=== PATIENT | female | born 1945 | race Caucasian/White ===

== ENCOUNTER 2021-10-12 16:07 | Inpatient (IN) | payer MEDICARE, SELFPAY ==
[2021-10-12 16:15] VITALS: BP 140/66; PULSE 91; RESP 20; TEMP 36.6; O2SAT 93; BMI 30.2
--- NOTE | 2021-10-12 16:15 | PC.NURSE ---
patient arrived to floor via ambulance
[2021-10-12 16:23] VITALS: PULSE 90
--- NOTE | 2021-10-12 17:10 | ECG_ITS ---
APPROVED REPORT Exam: Resting ECG HR:85 bpm ECG Measurements Heart Rate 85 AXES GA 202 P 66 QRSd 145 QRS -59 QT 399 T -19 QTc 441 Conclusion SINUS RHYTHM RIGHT BUNDLE BRANCH BLOCK [120+ ms QRS DURATION, UPRIGHT V1, 40+ ms S IN I/aVL/V4/V5/V6] LEFT ANTERIOR FASCICULAR BLOCK [QRS AXIS <= -45, QR IN I, RS IN II] POSSIBLE ANTEROSEPTAL MYOCARDIAL INFARCTION , OF INDETERMINATE AGE [30 ms Q WAVE IN V1-V4] ABNORMAL ECG UNCONFIRMED REPORT Electronically signed by : Earl Weber MD 10/15/2021 08:11:12
--- NOTE | 2021-10-12 18:40 | PC.NURSE ---
Patient admitted as direct admit from [facility]. Patient stated she didnt know what medications she took and list was in daughters car. Daughter stated she was not going to go to car to get list. Dr. Gilliland paged and made aware of pt arrival; troponin set, ekg, dilaudid, cardiac diet, ordered. VS stable, patient on room air. Patient complains of intermittent chest pain that does not radiate, is 10/10 on 0-10 pain scale. 1 inch nitro paste ordered. Patient stated pain is the same as it was in [facility] and was not worse.
[2021-10-12 19:35] LABS: Troponin I 2.75 ng/ml (0.00-0.034)
[2021-10-12 20:00] VITALS: BP 114/87; PULSE 100; PULSE 83; RESP 17; TEMP 36.7; O2SAT 91
[2021-10-12 22:58] LABS: Coronavirus 19, PCR Not Detected (NotDetected); Influenza A, PCR Not Detected (NotDetected); Influenza B, PCR Not Detected (NotDetected)
[2021-10-13] VITALS (22 sets, daily range): BP systolic 85–140; BP diastolic 48–81; PULSE 77–120; RESP 16–20; TEMP 36.2–37.4; O2SAT 91–98
--- NOTE | 2021-10-13 | IR_ITS ---
APPROVED REPORT Patient Location: Inpatient Legislative Correspondent: CANDI Temple RT (R) PROCEDURES Left heart catheterization Left ventriculogram Selective coronary angiogram Drug-eluting stent deployment to the ostial proximal dominant right coronary artery INDICATION Acute non-ST elevation myocardial infarction, Coronary artery dissection/disease Informed consent was obtained prior to the procedure. COMPLICATIONS NONE Estimated Blood Loss: LESS THAN 10 ML TECHNIQUE One percent lidocaine used to anesthetize the right anterior aspect of the wrist. The right radial artery was accessed via the Seldinger technique. A 6 [place] sheath was placed in the right radial artery. 2.5 mg of verapamil, 800 mcg of nitroglycerin, 1mg Lidocaine and 5000 U Heparin were given through the arterial sheath. The papa catheter was also used to perform right coronary artery selective angiogram. During the angiogram it was noticed the dissection was present in the proximal segment. It is possible it was catheter induced however the catheter was coaxial and appeared nicely aligned with the right coronary artery. It is also possible there was a pre-existing dissection which was the etiology for the elevated troponin level. Because there appeared to be a propagation of the dissection therapeutic heparin was immediately administered and a Choice PT extra-support wire was gently passed through the true lumen. A 3.5 x 26 mm resolute Jean-Claude stent was placed in the ostial proximal segment of the right coronary artery deployed at 24 whitney reducing the critical life-threatening dissection to 0%. PRETTY-3 flow was present before and after the procedure with transient PRETTY II flow in the presence of the dissection. Following this the apparatus was removed from the right coronary artery and the same catheter was used to perform selective coronary angiography of the left coronary system as well as left ventriculogram and left heart catheterization at the end the procedure the apparatus was removed the sheath was removed and hemostasis achieved using TR banding patient was transferred to the postop putting in stable addition ANGIOGRAPHIC RESULTS The left main artery Normal The left anterior descending artery Is proximally normal and has hazy 10 to 20% stenoses along the highly tortuous midportion of the vessel The circumflex artery Nondominant normal The right coronary artery Large dominant with a proximal dissection The FRANCIS ventriculogram reveals Severe left ventricular dilatation with ejection fraction of 20 to 25% anterior apical wall hypokinesis The left ventricular end-diastolic pressure 35 to 40 mmHg IMPRESSION 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 Entresto and beta-sheri 2. Dual antiplatelet therapy 3. LDL less than 55 to be achieved with high intensity statin 4. Cardiac rehabilitation 5. Patient should be discharged home with a LifeVest Electronically signed by : Kamran Wilkerson MD 10/13/2021 14:08:23
--- NOTE | 2021-10-13 05:49 | PC.NURSE ---
AOx4 to questions but pt does become confused at times with place/situation. Pt has been encouraged to use call light and explained importance of asking for help to get up but continues to try to get up on her own. Pt unsteady when ambulating independently and requires 1x assist to BR. Pt has been awake t/o majority of night and up to the chair. Pt has not voiced any complaints to staff. Bed alarm and chair alarm in place for pt safety. Call light within reach.
--- NOTE | 2021-10-13 08:56 | ECG_ITS ---
APPROVED REPORT Exam: Resting ECG HR:109 bpm ECG Measurements Heart Rate 109 AXES QRSd 137 QRS -63 QT 363 T 83 QTc 427 Conclusion ATRIAL FLUTTER/TACHYCARDIA WITH RAPID VENTRICULAR RESPONSE RIGHT BUNDLE BRANCH BLOCK [120+ ms QRS DURATION, UPRIGHT V1, 40+ ms S IN I/aVL/V4/V5/V6] LEFT ANTERIOR FASCICULAR BLOCK [QRS AXIS <= -45, QR IN I, RS IN II] POSSIBLE SEPTAL MYOCARDIAL INFARCTION , OF INDETERMINATE AGE [30 ms Q WAVE IN V1/V2] MODERATE T-WAVE ABNORMALITY, CONSIDER LATERAL ISCHEMIA [-0.1+ mV T-WAVE IN I/aVL/V5/V6] ABNORMAL ECG UNCONFIRMED REPORT Electronically signed by : Earl Weber MD 10/15/2021 08:08:58
--- NOTE | 2021-10-13 09:08 | PC.NURSE ---
Dr. Oswald notified of abnormal ekg of a-fib with rvr during rounds.
--- NOTE | 2021-10-13 09:14 | XR_ITS ---
FINAL REPORT CLINICAL HISTORY: chest pain FINDINGS: A single PA view of the chest was obtained. There is no prior exam for comparison. The cardiac and mediastinal silhouettes are within normal limits. There are increased interstitial markings with left base airspace disease and small left pleural effusion. There is no pneumothorax. No acute osseous abnormality is identified. IMPRESSION: Interstitial opacities and left base airspace disease and pleural effusion favored to represent pulmonary edema or pneumonia. Reviewed, Interpreted and Dictated by Deya Murray MD Transcribed by Maricarmen Pedro Authenticated and [facility]
--- NOTE | 2021-10-13 09:19 | P.CONPHA_ITS ---
[facility] Pharmacy VTE Monitoring Patient Demographics Patient Allergies No Known Allergies Allergy (Verified 10/12/21 17:02) Height: 1.78 m Weight: 95.51 kg VTE Risk Was VTE Risk Assessment Performed: No VTE Score: 4 VTE Risk Level: Low Risk Clinical Trial Participant: No Prophylaxis VTE Prophylaxis Ordered?: Yes Types of VTE Prophylaxis: TEDS Knee High
[2021-10-13 09:42] LABS: Basophils % 0.2 % (0.1-2.0); Eosinophils # 0.1 K/mm3 (0.0-0.4); Eosinophils % 0.7 % (0.1-12.0); Hematocrit 39.7 % (37.0-47.0); Hemoglobin 12.2 g/dL (12.2-16.2); Lymphocytes # 0.5 K/mm3 (0.7-4.5); Lymphocytes % 2.8 % (10-50); Mean Corpuscular HGB Conc 30.9 g/dL (31.8-35.4); Mean Corpuscular Hemoglobin 30.4 pg (27.0-31.2); Mean Corpuscular Volume 98.5 fl (81-99); Monocytes # 0.3 K/mm3 (0.1-1.0); Monocytes % 1.9 % (1.7-9.3); Neutrophils % 94.3 % (37.0-80.0); Platelet Count 413 K/mm3 (142-424); Red Blood Count 4.02 M/mm3 (4.20-5.40); Red Cell Distribution Width 13.6 % (11.5-17.5); White Blood Count 16.9 K/mm3 (4.8-10.8)
[2021-10-13 09:49] LABS: MANUAL DIFFERENTIAL MANUAL DIFFERENTIAL (MANUAL DIFF)
[2021-10-13 10:21] LABS: Lymphocytes % 6 % (10-50); Monocytes % 3 % (2-9); Neutrophils % 91 % (42-76); Platelet Estimate Normal; RBC Morphology Normal; Total Cells Counted 100
--- NOTE | 2021-10-13 10:23 | PC.NURSE ---
Rounded on pt, cleaned and straightened room. Pt is up to chair and npo for possible procedure. No needs voiced at this time.
[2021-10-13 10:30] LABS: Anion Gap 12.5 mEq/L (5-15); Blood Urea Nitrogen 29 mg/dl (7-17); Calcium 9.3 mg/dl (8.4-10.2); Carbon Dioxide 24 mmol/L (22.0-30.0); Chloride 105 mmol/L (98-107); Creatinine Clearance Estimated 56 mL/min (50-200); Estimated Glomerular Filt Rate 40 ml/min (>60); GFR (African American) 48 ML/MIN (>60); Glucose 130 mg/dl (74-100); Potassium 5.5 mmoL/L (3.5-5.1); Sodium 136 mmol/L (136-145)
[2021-10-13 10:31] LABS: Alanine Aminotransferase 80 U/L (12-78); Albumin Level 3.6 g/dl (3.5-5.0); Alkaline Phosphatase 358 U/L (38-126); Aspartate Amino Transferase 67 U/L (14-36); Bilirubin,Direct 0.6 mg/dl (0.0-0.4); Bilirubin,Total 0.6 mg/dl (0.2-1.3); Chol/HDL Ratio 4.7 (1-3.5); Cholesterol 211 mg/dl (140-200); HDL Cholesterol 45 mg/dl (40-60); Total Protein,Serum 6.4 g/dl (6.3-8.2); Triglycerides 244 mg/dl (30-150); VLDL Cholesterol 49 mg/dL (0-40)
--- NOTE | 2021-10-13 10:40 | EXP.CARD.CON ---
History of Present Illness History of Present Illness Consult date: 10/13/21 Requesting physician: Tunde Sykes Consult reason: chest pain Chief complaint: chest pain History of present illness: This is a 75-year-old white female who presented to [facility] with complaints of chest pain. The patient is a very poor historian so it is really hard to get an accurate review of systems and HPI on this patient. But she reports that she had chest pain the night before her admission and then her daughter states that she called her the morning of admission may be around 10 AM complaining of chest pain. The patient states that she was having sharp chest pains that lasted 2 minutes and were associated with shortness of breath. However her daughter states that she had the chest pain through the night and into the next morning as well and it sounded like it lasted for several hours. It is unclear how long she really had the chest pain. The patient reports that she took Tylenol and the pain subsided within an hour. She does not have any chest pain this morning but she is complaining of low back pain which she states is chronic. She does appear a little uncomfortable this morning but she states her only symptom is the low back pain. Her daughter took her to [facility] where she was found to have a non-STEMI and then she was transferred [facility]. Her troponin is elevated at 2.75 consistent with a non-ST elevation myocardial infarction. She does have a history of hypertension and hyperlipidemia. She is a former smoker. It is questionable whether or not she has a family history of ischemic heart disease. At 1 point the patient told us that she had no family history of heart disease and then she said she did. The daughter is unsure of any family history. Review of Systems Review of Systems Review of systems:: pertinent systems reviewed and negative unless documented below Constitutional Constitutional: Reports system reviewed and no additional complaints, except as documented Eyes Eyes: Reports system reviewed and no additional complaints, except as documented ENT Ears, Nose, Mouth, and Throat: Reports system reviewed and no additional complaints, except as documented *Cardiovascular Cardiovascular: Reports chest pain, Reports chest pain at rest, Reports chest pain with activity, Reports dyspnea and Reports dyspnea on exertion *Respiratory Respiratory: Reports system reviewed and no additional complaints, except as documented, Reports dyspnea and Reports dyspnea on exertion *Gastrointestinal Gastrointestinal: Reports system reviewed and no additional complaints, except as documented *Musculoskeletal Musculoskeletal: Reports system reviewed and no additional complaints, except as documented Integumentary/Breasts Skin/Breast: Reports system reviewed and no additional complaints, except as documented *Neurologic Neurologic: Reports system reviewed and no additional complaints, except as documented Psychiatric Psychiatric: Reports system reviewed and no additional complaints, except as documented Endocrine Endocrine: Reports system reviewed and no additional complaints, except as documented Hematologic/Lymphatic Hematologic/Lymphatic: Reports system reviewed and no additional complaints, except as documented Allergic/Immunologic Allergic/Immunologic: Reports system reviewed and no additional complaints, except as documented Exam Data for Last 24 hours Vital signs and Labs for Last 24 Hours: Temp Pulse Resp BP Pulse Ox 97.6 F 113 H 18 122/69 93 L 10/13/21 08:00 10/13/21 08:00 10/13/21 08:00 10/13/21 08:00 10/13/21 08:00 Laboratory Results - last 24 hr 10/12/21 17:30: Troponin I 2.75 H 10/12/21 22:15: SARS-CoV-2 (PCR) Not detected, Influenza A Untype (PCR) Not detected, Influenza Type B (PCR) Not detected 10/13/21 09:30: WBC 16.9 H, RBC 4.02 L, Hgb 12.2, Hct 39.7, MCV 98.5, MCH 30.4, MCHC 30.9 L,
[2021-10-13 10:59] LABS: Magnesium 1.6 mg/dl (1.6-2.3)
[2021-10-13 11:01] LABS: Thyroid Stimulating Hormone 1.49 uIU/mL (0.465-4.68)
--- NOTE | 2021-10-13 13:15 | SUR.PHASEII ---
Pt loaded with 180mg of Brilinta yesterday at [facility] stated to only give 90mg now and 90 tonight and to continue BID
--- NOTE | 2021-10-13 13:36 | EXP.HP ---
History of Present Illness *Admission Date: 10/12/21 *History of present illness: This is a 75-year-old white female who presented to [facility] with complaints of chest pain.? The patient is a very poor historian so it is really hard to get an accurate review of systems and HPI on this patient.? But she reports that she had chest pain the night before her admission and then her daughter states that she called her the morning of admission may be around 10 AM complaining of chest pain.? The patient states that she was having sharp chest pains that lasted 2 minutes and were associated with shortness of breath.? However her daughter states that she had the chest pain through the night and into the next morning as well and it sounded like it lasted for several hours.? It is unclear how long she really had the chest pain.? The patient reports that she took Tylenol and the pain subsided within an hour.? She does not have any chest pain this morning but she is complaining of low back pain which she states is chronic.? She does appear a little uncomfortable this morning but she states her only symptom is the low back pain.? Her daughter took her to [facility] where she was found to have a non-STEMI and then she was transferred here to [facility].? Her troponin is elevated at 2.75 consistent with a non-ST elevation myocardial infarction.? She does have a history of hypertension and hyperlipidemia.? She is a former smoker.? It is questionable whether or not she has a family history of ischemic heart disease.? At 1 point the patient told us that she had no family history of heart disease and then she said she did.? The daughter is unsure of any family history. PFSH PFS Social History Smoking Status: Smoker, status unknown alcohol intake: former current occupational status: retired Review of Systems Review of Systems Review of systems:: unable to obtain *Neurologic Neurologic: Reports system reviewed and no additional complaints, except as documented Meds Home Medications and Allergies Home Medications Medication Instructions Recorded Confirmed Type famotidine 40 mg tablet 40 mg PO BID Indigestion 10/12/21 10/13/21 History levothyroxine 50 mcg tablet 50 mcg PO DAILY hypothyroidism 10/12/21 10/13/21 History oxycodone-acetaminophen 5 mg-325 5 - 325 tab PO DAILY PRN Pain, 10/12/21 10/12/21 History mg tablet Moderate pantoprazole 40 mg tablet,delayed 40 mg PO DAILY acid reflux 10/12/21 10/12/21 History release pravastatin 40 mg tablet 40 mg PO HS Cholesterol 10/12/21 10/13/21 History ferrous sulfate 325 mg (65 mg 325 mg PO QPMWITHMEAL iron 10/13/21 10/13/21 History iron) tablet supplement furosemide 40 mg tablet 40 mg PO DAILY diuretic 10/13/21 10/13/21 History gabapentin 300 mg capsule 300 - 600 mg PO HS nerve pain 10/13/21 10/13/21 History lisinopril 20 1 tab PO DAILY Hypertension 10/13/21 10/13/21 History mg-hydrochlorothiazide 12.5 mg tablet potassium chloride 20 mEq 20 meq PO DAILY potassium 10/13/21 10/13/21 History tablet,extended release(part/cryst) replacement New Prescriptions to Start Prescriptions: Allergies Allergy/AdvReac Type Severity Reaction Status Date / Time No Known Allergies Allergy Verified 10/12/21 17:02 Exam Data for Last 24 hours Vital signs and Labs for Last 24 Hours: Temp Pulse Resp BP Pulse Ox 99.3 F 95 H 17 127/77 95 10/13/21 11:23 10/13/21 13:25 10/13/21 13:25 10/13/21 13:25 10/13/21 13:25 Laboratory Results - last 24 hr 10/12/21 17:30: Troponin I 2.75 H 10/12/21 22:15: SARS-CoV-2 (PCR) Not detected, Influenza A Untype (PCR) Not detected, Influenza Type B (PCR) Not detected 10/13/21 09:30: WBC 16.9 H, RBC 4.02 L, Hgb 12.2, Hct 39.7, MCV 98.5, MCH 30.4, MCHC 30.9 L, RDW 13.6, Plt Count 413, MPV 8.0, Neut % (Auto) 94.3 H, Lymph % (Auto) 2.8 L, [place] % (Auto) 1.9, Eos % (Auto) 0.7, Baso % (Auto) 0.2, Neut # (Auto) 16.0 H, Lym
[2021-10-13 13:40] LABS: CATHL Activated Clotting Time 240 SEC (74-125)
--- NOTE | 2021-10-13 18:46 | PC.NURSE ---
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 VS stable and TR band in place, pulses in right wrist strong and palpable. Initially tried to take air out at 1505 but patient began to bleed from site. 4ml placed back in band. VS still stable. Patient able to wake up and take po medication. Dilaudid given for pain. Patient stated she was not having chest pain anymore.
[2021-10-13 21:45] LABS: POC Glucose,Bedside 145 (70-110)
[2021-10-14] VITALS (7 sets, daily range): BP systolic 91–121; BP diastolic 50–70; PULSE 76–93; RESP 18–28; TEMP 36.4–37; O2SAT 94–98; BMI 30.3
--- NOTE | 2021-10-14 05:40 | PC.NURSE ---
Patient a&o x3. TR band off Right radial cath site CDI, no bleeding nor hematoma noted. Reminded patient not to put pressure on arm. Patient ambulated to toilet with stand by assist. No chest pain noted throughout night. Patient medicated per mar for back pain.
[2021-10-14 06:33] LABS: Basophils % 0.2 % (0.1-2.0); Eosinophils # 0.1 K/mm3 (0.0-0.4); Eosinophils % 0.8 % (0.1-12.0); Hematocrit 35.9 % (37.0-47.0); Hemoglobin 11.2 g/dL (12.2-16.2); Lymphocytes # 0.7 K/mm3 (0.7-4.5); Lymphocytes % 4.6 % (10-50); Mean Corpuscular HGB Conc 31.3 g/dL (31.8-35.4); Mean Corpuscular Hemoglobin 30.4 pg (27.0-31.2); Mean Corpuscular Volume 97.4 fl (81-99); Mean Platelet Volume 7.8 fl (7.4-10.4); Monocytes # 0.6 K/mm3 (0.1-1.0); Monocytes % 3.6 % (1.7-9.3); Neutrophils # 14.4 K/mm3 (1.8-7.8); Neutrophils % 90.8 % (37.0-80.0); Platelet Count 491 K/mm3 (142-424); Red Blood Count 3.69 M/mm3 (4.20-5.40); Red Cell Distribution Width 13.9 % (11.5-17.5); White Blood Count 15.9 K/mm3 (4.8-10.8)
[2021-10-14 06:54] LABS: MANUAL DIFFERENTIAL MANUAL DIFFERENTIAL (MANUAL DIFF)
[2021-10-14 07:23] LABS: Anion Gap 14.6 mEq/L (5-15); Blood Urea Nitrogen 34 mg/dl (7-17); Carbon Dioxide 24 mmol/L (22.0-30.0); Chloride 104 mmol/L (98-107); Creatinine Clearance Estimated 33 mL/min (50-200); Estimated Glomerular Filt Rate 22 ml/min (>60); GFR (African American) 26 ML/MIN (>60); Glucose 125 mg/dl (74-100); Potassium 4.6 mmoL/L (3.5-5.1); Sodium 138 mmol/L (136-145)
[2021-10-14 07:57] LABS: Lymphocytes % 3 % (10-50); Monocytes % 7 % (2-9); Neutrophils % 90 % (42-76); Total Cells Counted 100
[2021-10-14 07:58] LABS: Platelet Estimate Slight Increase; RBC Morphology Normal
--- NOTE | 2021-10-14 09:46 | EXP.CARD.PN ---
Subjective Subjective Date: 10/14/21 Time: 08:30 Principal diagnosis: nonstemi, cardiomyopathy Interval history: This is a 75-year-old white female who presented to [facility] with chest pain. The patient was found to have a non-STEMI and transferred here to [facility]. The patient underwent left cardiac catheterization and had a dissection to her right coronary artery and underwent stenting to the right coronary artery. 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 The patient has severe LV dysfunction with an estimated ejection fraction on left ventriculogram at 20 to 25% with anterior apical wall hypokinesis she also had a severely elevated LVEDP. The patient was started on Lasix, Entresto, metoprolol and Jardiance yesterday. Her renal function has significantly elevated today from 1.3-2.2. She is likely having some contrast nephropathy from the contrast load that was given during her heart cath yesterday as well as the addition of Lasix and Entresto yesterday. This morning she denies any chest pain or pressure. She denies any shortness of breath or edema. She denies any fever, chills, nausea, vomiting, diarrhea, PND or orthopnea. Patient is still having lower back pain which she states is chronic. Exam Data for Last 24 hours Vital signs and Labs for Last 24 Hours: Temp Pulse Resp BP Pulse Ox 98.2 F 78 24 91/50 L 97 10/14/21 08:00 10/14/21 08:00 10/14/21 08:00 10/14/21 08:00 10/14/21 08:00 Laboratory Results - last 24 hr 10/13/21 09:30: WBC 16.9 H, RBC 4.02 L, Hgb 12.2, Hct 39.7, MCV 98.5, MCH 30.4, MCHC 30.9 L, RDW 13.6, Plt Count 413, MPV 8.0, Neut % (Auto) 94.3 H, Lymph % (Auto) 2.8 L, [place] % (Auto) 1.9, Eos % (Auto) 0.7, Baso % (Auto) 0.2, Neut # (Auto) 16.0 H, Lymph # (Auto) 0.5 L, [place] # (Auto) 0.3, Eos # (Auto) 0.1, Baso # (Auto) 0.0, Total Counted 100, Neutrophils % (Manual) 91 H, Lymphocytes % (Manual) 6 L, Monocytes % (Manual) 3, Platelet Estimate Normal, RBC Morphology Normal 10/13/21 09:30: Sodium 136, Potassium 5.5 H, Chloride 105, Carbon Dioxide 24, Anion Gap 12.5, BUN 29 H, Creatinine 1.30 H, Estimated Creat Clear 56, Estimated GFR 40 L, Est GFR ( Amer) 48 L, Glucose 130 H, Calcium 9.3, TSH 1.49 10/13/21 09:30: Magnesium 1.6 10/13/21 09:30: Total Bilirubin 0.6, Direct Bilirubin 0.6 H, Conjugated Bilirubin 0.0, Indirect Bilirubin 0.0, Unconjugated Bilirubin 0.0, AST 67 H, ALT 80 H, Alkaline Phosphatase 358 H, Total Protein 6.4, Albumin 3.6, Triglycerides 244 H, Cholesterol 211 H, VLDL Cholesterol 49 H, HDL Cholesterol 45, Cholesterol/HDL Ratio 4.7 H 10/13/21 12:51: Activated Clotting Time 240 H* 10/13/21 21:38: POC Glucose 145 H 10/14/21 06:00: WBC 15.9 H, RBC 3.69 L, Hgb 11.2 L, Hct 35.9 L, MCV 97.4, MCH 30.4, MCHC 31.3 L, RDW 13.9, Plt Count 491 H, MPV 7.8, Neut % (Auto) 90.8 H, Lymph % (Auto) 4.6 L, [place] % (Auto) 3.6, Eos % (Auto) 0.8, Baso % (Auto) 0.2, Neut # (Auto) 14.4 H, Lymph # (Auto) 0.7, [place] # (Auto) 0.6, Eos # (Auto) 0.1, Baso # (Auto) 0.0, Total Counted 100, Neutrophils % (Manual) 90 H, Lymphocytes % (Manual) 3 L, Monocytes % (Manual) 7, Platelet Estimate Slight increase, RBC Morphology Normal 10/14/21 06:00: Sodium 138, Potassium 4.6, Chloride 104, Carbon Dioxide 24, Anion Gap 14.6, BUN 34 H, Creatinine 2.20 H D, Estimated Creat Clear 33, Estimated GFR 22 L, Est GFR ( Amer) 26 L D, Glucose 125 H, Calcium 9.0 I & O for Last 24 hours: Intake & Output 10/11/21 10/12/21 10/13/21 10/14/21 23:59 23:59 23:59 23:59 Intake Total 240 / 240 240 / 240 Output Total 700 / 700 2074 / 2074 200 / 200 Balance -460 / -460 -1835 / -1835 -200 / -200 Weight 210 lb 9 oz 210 lb 9 oz 212 lb Constitutional Constitutional: no acute distress and obese *Routine HEENT Exam Head: Present normocephalic and atraumatic ENT: Present mucous membranes moist *Routine Neck Exam Neck: Present supple, full ROM and normal carotid upstroke; Absent JVD, carotid
--- NOTE | 2021-10-14 09:54 | EXP.ACUTE.PN ---
Subjective *Date: 10/17/21 *Time: 11:50 Interval history: pt seen today and no specific c/o and awaiting life vest Medical Exam Vital signs and Labs for Last 24 Hours: Temp Pulse Resp BP Pulse Ox 98.2 F 78 24 91/50 L 97 10/14/21 08:00 10/14/21 08:00 10/14/21 08:00 10/14/21 08:00 10/14/21 08:00 Laboratory Results - last 24 hr 10/13/21 09:30: Total Counted 100, Neutrophils % (Manual) 91 H, Lymphocytes % (Manual) 6 L, Monocytes % (Manual) 3, Platelet Estimate Normal, RBC Morphology Normal 10/13/21 09:30: Sodium 136, Potassium 5.5 H, Chloride 105, Carbon Dioxide 24, Anion Gap 12.5, BUN 29 H, Creatinine 1.30 H, Estimated Creat Clear 56, Estimated GFR 40 L, Est GFR ( Amer) 48 L, Glucose 130 H, Calcium 9.3, TSH 1.49 10/13/21 09:30: Magnesium 1.6 10/13/21 09:30: Total Bilirubin 0.6, Direct Bilirubin 0.6 H, Conjugated Bilirubin 0.0, Indirect Bilirubin 0.0, Unconjugated Bilirubin 0.0, AST 67 H, ALT 80 H, Alkaline Phosphatase 358 H, Total Protein 6.4, Albumin 3.6, Triglycerides 244 H, Cholesterol 211 H, VLDL Cholesterol 49 H, HDL Cholesterol 45, Cholesterol/HDL Ratio 4.7 H 10/13/21 12:51: Activated Clotting Time 240 H* 10/13/21 21:38: POC Glucose 145 H 10/14/21 06:00: WBC 15.9 H, RBC 3.69 L, Hgb 11.2 L, Hct 35.9 L, MCV 97.4, MCH 30.4, MCHC 31.3 L, RDW 13.9, Plt Count 491 H, MPV 7.8, Neut % (Auto) 90.8 H, Lymph % (Auto) 4.6 L, [place] % (Auto) 3.6, Eos % (Auto) 0.8, Baso % (Auto) 0.2, Neut # (Auto) 14.4 H, Lymph # (Auto) 0.7, [place] # (Auto) 0.6, Eos # (Auto) 0.1, Baso # (Auto) 0.0, Total Counted 100, Neutrophils % (Manual) 90 H, Lymphocytes % (Manual) 3 L, Monocytes % (Manual) 7, Platelet Estimate Slight increase, RBC Morphology Normal 10/14/21 06:00: Sodium 138, Potassium 4.6, Chloride 104, Carbon Dioxide 24, Anion Gap 14.6, BUN 34 H, Creatinine 2.20 H D, Estimated Creat Clear 33, Estimated GFR 22 L, Est GFR ( Amer) 26 L D, Glucose 125 H, Calcium 9.0 I & O for Labs for Last 24 Hours: Intake & Output 10/11/21 10/12/21 10/13/21 10/14/21 11:59 11:59 11:59 11:59 Intake Total 240 / 240 240 / 240 Output Total 1275 / 1275 1700 / 1700 Balance -1035 / -1035 -1460 / -1460 Weight 210 lb 9 oz 212 lb Head: atraumatic Eyes: as per HPI ENT: mucous membranes dry Neck: trachea midline Respiratory: decreased breath sounds Cardiac: Reg Rate and Rhythm GI: soft Extremities: calf tenderness Skin: intact Neuro: Cranial Nerve 2-12 Intact Assessment and Plan Assessment and plan all Dx Plan of Treatment: Plan: 1. The patient was admitted to the hospital with complaints of chest pain. She does have an elevated troponin consistent with a non-ST elevation myocardial infarction. The patient will undergo left cardiac catheterization today for evaluation of coronary artery disease. 2. The patient has been educated the risk and benefits of proceeding with left cardiac catheterization. The patient has verbalized understanding is agreeable in proceeding with the procedure. 3. The patient be n.p.o. in preparation for left cardiac catheterization. 4. Her blood pressure is well controlled. 5. Her LDL goal is less than 55. We will get a lipid panel this morning. 6. The patient is a very poor historian. Her daughter does provide a lot of her information today. 7. The patient's EKG this morning appears to be atrial flutter. We will start Toprol XL 50 mg daily for better heart rate control. We will address anticoagulation following her heart cath. 8. Will get an echocardiogram to evaluate her LV function. Preliminary EF is 25 to 30%. The patient has cardiomyopathy, this is new onset. The patient is at increased risk for sudden cardiac due to her severe LV dysfunction. She will likely need a LifeVest prior to discharge home. 9. Further recommendations will made pending the patient's response to treatment and the results of her left cardiac catheterization and echocardiogram today. Thank you for the opportunity to help participate in t
--- NOTE | 2021-10-14 11:10 | PC.NURSE ---
Pt returned to floor from pacemaker placement. Report received from Di. Pt has F/U appt. on 10/17/21 and medication changes have been made per cardio. Condition stable. VSS.
[2021-10-14 11:36] LABS: Direct LDL Cholesterol 113 mg/dL (100-129)
--- NOTE | 2021-10-14 12:20 | ECG_ITS ---
APPROVED REPORT Exam: Resting ECG HR:75 bpm ECG Measurements Heart Rate 75 AXES AL 168 P 25 QRSd 118 QRS -58 QT 355 T 13 QTc 384 Conclusion SINUS RHYTHM LOW QRS VOLTAGE IN PRECORDIAL LEADS [QRS DEFLECTION < 1.0 mV IN CHEST LEADS] RIGHT BUNDLE BRANCH BLOCK [120+ ms QRS DURATION, UPRIGHT V1, 40+ ms S IN I/aVL/V4/V5/V6] Isolated q in iii, LAD ABNORMAL ECG UNCONFIRMED REPORT Electronically signed by : Earl Weber MD 10/15/2021 08:01:07
--- NOTE | 2021-10-14 14:55 | PC.NURSE ---
spoke with clinic pharmacy who stated that they would be bringing up patients first 30 days of brilinta
--- NOTE | 2021-10-14 15:05 | PC.NURSE ---
rounded on patient. patient was up to chair but sleeping. call light within reach. chair alarm on.
--- NOTE | 2021-10-14 15:31 | PC.NURSE ---
Discharge instructions have been discussed with pt and , verbalize understanding. Condition is stable at this time. Awaiting daughter to come pick them up for ride home. IVs and tele have been removed.
--- NOTE | 2021-10-14 17:06 | PC.NURSE ---
Pt alert, verbal with clear speech. Oriented x 3. Has been up in chair most of the shift, ambulated about room and to restroom with stand-by assist. Did have 2 episodes of urinary incont. this shift. IV sites patent. Continues on RA. S/P heart cath 10/13, site to R radial clear. Cardiac diet resumed. Condition stable. No c/o or s/sx of distress noted.
[2021-10-15] VITALS: BP 106/64; PULSE 85; PULSE 89; RESP 17; TEMP 36.8; O2SAT 94
[2021-10-15 04:00] VITALS: BP 123/66; PULSE 75; PULSE 87; RESP 18; TEMP 36.9; O2SAT 96
--- NOTE | 2021-10-15 05:25 | PC.NURSE ---
no changes from previous assessment, pt has remained up to chair all through the night and slept in intervals, pt with frequent trips noted to bathroom with no voiding noted, VSS, pt is alert and oriented x4, no edema noted, pt up with assist x1 to bathroom, no other issues noted at this time. telemetry reveals nsr rate 80-90, no complaints of pain
[2021-10-15 08:00] VITALS: BP 111/70; PULSE 90; RESP 20; TEMP 36.6; O2SAT 94
--- NOTE | 2021-10-15 09:43 | P.PN_ITS ---
Subjective *Date: 10/17/21 *Time: 11:51 Interval history: doing some better but still limited with ambulation and pending life vest Medical Exam Vital signs and Labs for Last 24 Hours: Temp Pulse Resp BP Pulse Ox 97.8 F 90 20 111/70 94 L 10/15/21 08:00 10/15/21 08:00 10/15/21 08:00 10/15/21 08:00 10/15/21 08:00 Laboratory Results - last 24 hr 10/13/21 09:30: LDL Cholesterol Direct 113 I & O for Labs for Last 24 Hours: Intake & Output 10/12/21 10/13/21 10/14/21 10/15/21 11:59 11:59 11:59 11:59 Intake Total 240 / 240 240 / 240 660 / 660 Output Total 1275 / 1275 1700 / 1700 300 / 300 Balance -1035 / -1035 -1460 / -1460 360 / 360 Weight 210 lb 9 oz 212 lb 211 lb 15.944 oz Head: atraumatic Eyes: as per HPI ENT: mucous membranes moist Neck: trachea midline Respiratory: decreased breath sounds Cardiac: Reg Rate and Rhythm GI: soft Extremities: full ROM Skin: erythema Neuro: Cranial Nerve 2-12 Intact Assessment and Plan Assessment and plan all Dx Plan of Treatment: Plan: 1. The patient was admitted to the hospital with complaints of chest pain. She does have an elevated troponin consistent with a non-ST elevation myocardial in farction. The patient will undergo left cardiac catheterization today for evaluation of coronary artery disease. 2. The patient has been educated the risk and benefits of proceeding with left cardiac catheterization. The patient has verbalized understanding is agreeable in proceeding with the procedure. 3. The patient be n.p.o. in preparation for left cardiac catheterization. 4. Her blood pressure is well controlled. 5. Her LDL goal is less than 55. We will get a lipid panel this morning. 6. The patient is a very poor historian. Her daughter does provide a lot of her information today. 7. The patient's EKG this morning appears to be atrial flutter. We will start Toprol XL 50 mg daily for better heart rate control. We will address anticoagulation following her heart cath. 8. Will get an echocardiogram to evaluate her LV function. Preliminary EF is 25 to 30%. The patient has cardiomyopathy, this is new onset. The patient is at increased risk for sudden cardiac due to her severe LV dysfunction. She will likely need a LifeVest prior to discharge home. 9. Further recommendations will made pending the patient's response to treatment and the results of her left cardiac catheterization and echocardiogram today. Thank you for the opportunity to help participate in the care of this patient. All recommendations and orders are per Dr. Wilkerson.
[2021-10-15 10:45] LABS: Basophils % 0.2 % (0.1-2.0); Eosinophils # 0.2 K/mm3 (0.0-0.4); Hematocrit 34.9 % (37.0-47.0); Hemoglobin 11.1 g/dL (12.2-16.2); Lymphocytes # 0.6 K/mm3 (0.7-4.5); Lymphocytes % 4.6 % (10-50); Mean Corpuscular HGB Conc 31.7 g/dL (31.8-35.4); Mean Corpuscular Hemoglobin 30.4 pg (27.0-31.2); Mean Corpuscular Volume 95.8 fl (81-99); Mean Platelet Volume 7.8 fl (7.4-10.4); Monocytes # 0.4 K/mm3 (0.1-1.0); Monocytes % 2.8 % (1.7-9.3); Neutrophils # 12.7 K/mm3 (1.8-7.8); Neutrophils % 91.4 % (37.0-80.0); Platelet Count 525 K/mm3 (142-424); Red Blood Count 3.64 M/mm3 (4.20-5.40); Red Cell Distribution Width 13.7 % (11.5-17.5); White Blood Count 13.9 K/mm3 (4.8-10.8)
[2021-10-15 10:46] LABS: MANUAL DIFFERENTIAL MANUAL DIFFERENTIAL (MANUAL DIFF)
[2021-10-15 10:54] LABS: Alanine Aminotransferase 52 U/L (12-78); Albumin Level 3.7 g/dl (3.5-5.0); Albumin/Globulin Ratio 1.1 (1.1-1.8); Alkaline Phosphatase 305 U/L (38-126); Anion Gap 14.1 mEq/L (5-15); Aspartate Amino Transferase 42 U/L (14-36); Bilirubin,Total 0.6 mg/dl (0.2-1.3); Blood Urea Nitrogen 43 mg/dl (7-17); Calcium 9.3 mg/dl (8.4-10.2); Carbon Dioxide 24 mmol/L (22.0-30.0); Chloride 104 mmol/L (98-107); Creatinine Clearance Estimated 38 mL/min (50-200); Estimated Glomerular Filt Rate 26 ml/min (>60); GFR (African American) 31 ML/MIN (>60); Globulin 3.4 g/dL (1.3-3.2); Glucose 124 mg/dl (74-100); Potassium 4.1 mmoL/L (3.5-5.1); Sodium 138 mmol/L (136-145); Total Protein,Serum 7.1 g/dl (6.3-8.2)
[2021-10-15 12:00] VITALS: BP 185/97; PULSE 70; PULSE 79; RESP 20; TEMP 36.6; O2SAT 97
[2021-10-15 12:28] LABS: Lymphocytes % 11 % (10-50); Monocytes % 3 % (2-9); Neutrophils % 85 % (42-76); Platelet Estimate Slight Increase; RBC Morphology Normal; Total Cells Counted 100
--- NOTE | 2021-10-15 15:38 | PC.NURSE ---
Addendum entered by Paras Laurent RN 10/15/21 18:52: Have educated x 2 family members on life vest. Original Note: Pt did have life vest placed on today. This RN did call and speak with 11/09 rep for life vest today, to ensure everything is working properly and it is. Cb in reach and pt a/o x 4. VSS.
[2021-10-15 16:00] VITALS: BP 121/66; PULSE 70; RESP 20; TEMP 36.6; O2SAT 97
[2021-10-15 20:00] VITALS: BP 104/56; PULSE 80; RESP 17; TEMP 37.1; O2SAT 94
[2021-10-16] VITALS (9 sets, daily range): BP systolic 115–139; BP diastolic 46–72; PULSE 60–132; RESP 16–17; TEMP 36.6–37.2; O2SAT 93–100; BMI 30.3
--- NOTE | 2021-10-16 04:00 | PC.NURSE ---
pt rested well through the night, pt remained in chair all night to sleep, pt refused to go to bed, VSS, skin pwd, telemetry NSR, pt with lifevest in place, 1+ edema noted BLE; lung sounds diminished, 02 sats 97 on room air, pt up to br with assist x1; no other issues noted at this time, pt is alert and oriented x4.
[2021-10-16 08:54] LABS: Basophils % 0.3 % (0.1-2.0); Eosinophils # 0.1 K/mm3 (0.0-0.4); Eosinophils % 0.5 % (0.1-12.0); Hematocrit 35.7 % (37.0-47.0); Hemoglobin 11.2 g/dL (12.2-16.2); Lymphocytes # 0.6 K/mm3 (0.7-4.5); Lymphocytes % 5.1 % (10-50); Mean Corpuscular HGB Conc 31.4 g/dL (31.8-35.4); Mean Corpuscular Hemoglobin 30.7 pg (27.0-31.2); Mean Corpuscular Volume 97.6 fl (81-99); Monocytes # 0.4 K/mm3 (0.1-1.0); Monocytes % 3.2 % (1.7-9.3); Neutrophils # 10.9 K/mm3 (1.8-7.8); Neutrophils % 90.8 % (37.0-80.0); Platelet Count 563 K/mm3 (142-424); Red Blood Count 3.66 M/mm3 (4.20-5.40); Red Cell Distribution Width 13.6 % (11.5-17.5)
[2021-10-16 09:13] LABS: Alanine Aminotransferase 59 U/L (12-78); Albumin Level 3.8 g/dl (3.5-5.0); Albumin/Globulin Ratio 1.1 (1.1-1.8); Alkaline Phosphatase 289 U/L (38-126); Anion Gap 15.2 mEq/L (5-15); Aspartate Amino Transferase 55 U/L (14-36); Bilirubin,Total 0.6 mg/dl (0.2-1.3); Blood Urea Nitrogen 41 mg/dl (7-17); Calcium 9.4 mg/dl (8.4-10.2); Carbon Dioxide 25 mmol/L (22.0-30.0); Chloride 103 mmol/L (98-107); Creatinine Clearance Estimated 40 mL/min (50-200); Estimated Glomerular Filt Rate 27 ml/min (>60); GFR (African American) 33 ML/MIN (>60); Globulin 3.4 g/dL (1.3-3.2); Glucose 163 mg/dl (74-100); Potassium 4.2 mmoL/L (3.5-5.1); Sodium 139 mmol/L (136-145); Total Protein,Serum 7.2 g/dl (6.3-8.2)
[2021-10-16 09:17] LABS: MANUAL DIFFERENTIAL MANUAL DIFFERENTIAL (MANUAL DIFF)
--- NOTE | 2021-10-16 09:22 | PC.NURSE ---
courtesy tech round: Assisted pt to bathroom. Pt used her cane and ambulated good to and from bathroom. Pt voided. Pt is back to chair with pull alarm attached with No further requests at this time.
[2021-10-16 11:12] LABS: Eosinophils % 1 % (0-3); Lymphocytes % 4 % (10-50); Neutrophils % 95 % (42-76); Platelet Estimate Slight Increase; RBC Morphology Normal; Total Cells Counted 100
--- NOTE | 2021-10-16 11:13 | EXP.ACUTE.PN ---
Subjective *Date: 10/17/21 *Time: 11:52 Interval history: doing better with life vest on - labs ok Medical Exam Vital signs and Labs for Last 24 Hours: Temp Pulse Resp BP Pulse Ox 98.0 F 79 16 115/46 L 97 10/16/21 07:49 10/16/21 07:49 10/16/21 07:49 10/16/21 07:49 10/16/21 07:49 Laboratory Results - last 24 hr 10/15/21 10:15: Total Counted 100, Neutrophils % (Manual) 85 H, Band Neutrophils % 1.0, Lymphocytes % (Manual) 11, Monocytes % (Manual) 3, Platelet Estimate Slight increase, RBC Morphology Normal 10/16/21 08:15: WBC 12.0 H, RBC 3.66 L, Hgb 11.2 L, Hct 35.7 L, MCV 97.6, MCH 30.7, MCHC 31.4 L, RDW 13.6, Plt Count 563 H, MPV 8.0, Neut % (Auto) 90.8 H, Lymph % (Auto) 5.1 L, [place] % (Auto) 3.2, Eos % (Auto) 0.5, Baso % (Auto) 0.3, Neut # (Auto) 10.9 H, Lymph # (Auto) 0.6 L, [place] # (Auto) 0.4, Eos # (Auto) 0.1, Baso # (Auto) 0.0, Total Counted 100, Neutrophils % (Manual) 95 H, Lymphocytes % (Manual) 4 L, Eosinophils % (Manual) 1, Platelet Estimate Slight increase, RBC Morphology Normal 10/16/21 08:15: Sodium 139, Potassium 4.2, Chloride 103, Carbon Dioxide 25, Anion Gap 15.2 H, BUN 41 H, Creatinine 1.80 H, Estimated Creat Clear 40, Estimated GFR 27 L, Est GFR ( Amer) 33 L, Glucose 163 H D, Calcium 9.4, Total Bilirubin 0.6, AST 55 H D, ALT 59, Alkaline Phosphatase 289 H, Total Protein 7.2, Albumin 3.8, Globulin 3.4 H, Albumin/Globulin Ratio 1.1 I & O for Labs for Last 24 Hours: Intake & Output 08/25/22 08/26/22 08/27/22 08/28/22 11:59 11:59 11:59 11:59 Intake Total 240 / 240 240 / 240 660 / 660 520 / 520 Output Total 1275 / 1275 1700 / 1700 300 / 300 102 / 102 Balance -1035 / -1035 -1460 / -1460 360 / 360 418 / 418 Weight 210 lb 9 oz 212 lb 211 lb 15.944 oz 212 lb 0.085 oz Head: atraumatic Eyes: as per HPI ENT: mucous membranes moist Neck: trachea midline Respiratory: CTA bilaterally Cardiac: Reg Rate and Rhythm and Systolic Murmur GI: soft Extremities: edema Skin: petechiae Neuro: Cranial Nerve 2-12 Intact Assessment and Plan Assessment and plan all Dx Plan of Treatment: Plan: 1. The patient was admitted to the hospital with complaints of chest pain. She does have an elevated troponin consistent with a non-ST elevation myocardial infarction. The patient will undergo left cardiac catheterization today for evaluation of coronary artery disease. 2. The patient has been educated the risk and benefits of proceeding with left cardiac catheterization. The patient has verbalized understanding is agreeable in proceeding with the procedure. 3. The patient be n.p.o. in preparation for left cardiac catheterization. 4. Her blood pressure is well controlled. 5. Her LDL goal is less than 55. We will get a lipid panel this morning. 6. The patient is a very poor historian. Her daughter does provide a lot of her information today. 7. The patient's EKG this morning appears to be atrial flutter. We will start Toprol XL 50 mg daily for better heart rate control. We will address anticoagulation following her heart cath. 8. Will get an echocardiogram to evaluate her LV function. Preliminary EF is 25 to 30%. The patient has cardiomyopathy, this is new onset. The patient is at increased risk for sudden cardiac due to her severe LV dysfunction. She will likely need a LifeVest prior to discharge home. 9. Further recommendations will made pending the patient's response to treatment and the results of her left cardiac catheterization and echocardiogram today. Thank you for the opportunity to help participate in the care of this patient. All recommendations and orders are per Dr. Wilkerson.
--- NOTE | 2021-10-16 18:55 | PC.NURSE ---
Pt a/o x 4. Up to chair all shift. NAD. No acute changes since pervious assessment. Life vest in place and in proper use. Pt has had no c/o's other than she wants to go home.
[2021-10-17] VITALS: BP 134/67; PULSE 70; PULSE 77; RESP 16; TEMP 36.7; O2SAT 93
[2021-10-17 04:00] VITALS: BP 122/67; PULSE 60; PULSE 71; RESP 16; TEMP 36.7; O2SAT 97
[2021-10-17 04:43] VITALS: BMI 30.3
--- NOTE | 2021-10-17 05:41 | PC.NURSE ---
pt slept well through the night, pt remained up to chair all night, pt refused to sleep in bed, VSS, life vest in place, telemetry reveals nsr w/BBB and prolonged qt, hr 60, mild edema to 1+ to BLE, pt complaints of tenderness when pressing on LLE, no redness noted, skin pwd, pt is alert and oriented and anxious to go home, no other issues noted at this time.
[2021-10-17 08:00] VITALS: BP 132/84; PULSE 88; RESP 18; TEMP 36.8; O2SAT 96
--- NOTE | 2021-10-17 09:59 | EXP.CARD.PN ---
Subjective Subjective Date: 10/17/21 Time: 09:00 Principal diagnosis: nonstemi, cardiomyopathy Interval history: Doing well, denies complaint. Creatinine improved to 1.80 today. requesting to go home. Wearing life vest currently. Exam Data for Last 24 hours Vital signs and Labs for Last 24 Hours: Temp Pulse Resp BP Pulse Ox 98.2 F 88 18 132/84 96 10/17/21 08:00 10/17/21 08:00 10/17/21 08:00 10/17/21 08:00 10/17/21 08:00 Laboratory Results - last 24 hr 10/16/21 08:15: Total Counted 100, Neutrophils % (Manual) 95 H, Lymphocytes % (Manual) 4 L, Eosinophils % (Manual) 1, Platelet Estimate Slight increase, RBC Morphology Normal I & O for Last 24 hours: Intake & Output 10/14/21 10/15/21 10/16/21 10/17/21 23:59 23:59 23:59 23:59 Intake Total 300 / 300 640 / 640 600 / 600 Output Total 400 / 400 201 / 201 1001 / 1001 0 / 0 Balance -100 / -100 439 / 439 -401 / -401 0 / 0 Weight 211 lb 15.944 oz 212 lb 0.085 oz 212 lb 0.05 oz Constitutional Constitutional: no acute distress *Routine Respiratory Exam Respiratory: Present CTA bilaterally and symmetric chest movement *Routine Cardiovascular Exam Cardiovascular: Present RRR, Normal S1 and Normal S2 *Routine Abdominal Exam Abdominal: Present soft and normoactive bowel sounds; Absent tenderness *Routine Extremities Exam Extremities: Present full ROM and normal capillary refill; Absent edema *Routine Skin Exam Skin: Present intact, dry and warm Detailed Neck Exam: Thyroids Thyroid: Absent bruit Progress Note: A&P Assessment and plan (1) Angina pectoris: Status: Acute (2) Abnormal electrocardiogram [ECG] [EKG]: Status: Acute (3) Shortness of Breath: Status: Acute (4) Poor historian: Status: Acute (5) Non-STEMI (non-ST elevated myocardial infarction): Status: Acute (6) Hypertension: Status: Acute (7) Hyperlipidemia: Status: Acute Assessment and Plan Assessment and Plan for All Diagnoses:: Assessment and Plan for All Diagnoses:: Plan: 1.? The patient was admitted to the hospital with complaints of chest pain.? She had an elevated troponin consistent with a non-ST elevation myocardial infarction.? 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 The patient subsequently had stenting to the right coronary artery and will remain on Brilinta and aspirin for dual antiplatelet therapy. 2.? The patient has cardiomyopathy with an ejection fraction of approximately 25%.? The LV gram estimated her ejection fraction at 20 to 25% and the preliminary echocardiogram estimated the ejection fraction around 25 to 30%.? The patient does have severe LV dysfunction.? She is an increased risk for sudden cardiac due to severe LV dysfunction.? Since she is at increased risk of sudden cardiac the patient would benefit from a LifeVest.?currently wearing lifevest. 3.? The patient was started on Lasix yesterday secondary to systolic congestive heart failure and a severely elevated LVEDP.? Her creatinine was up to 2.2 but has improved to 1.8. Can resume Lasix 20mg QD. 4.? The patient was started on Entresto- resume and continue Entrest 5.? She is currently on metoprolol and Jardiance for systolic congestive heart failure.? We will continue these medications. 6.? The patient was in atrial flutter yesterday.? It appears that she is back in sinus rhythm today.? We will get an EKG to confirm this.? We will also start her on amiodarone 200 mg p.o. twice daily for suppression of the atrial fibrillation/flutter. Continue and re-asses in office. 7.? The patient is on Xarelto for long-term anticoagulation secondary to atrial fibrillation/flutter. 8.? The patient will be on triple therapy with aspirin Brilinta and Xarelto for 30 days.? After 30 days the patient can stop aspirin and remain on Brilinta and Xarelto only. 9.? Her blood pressure is on the lower side this morning but acceptabl
[2021-10-17 12:00] VITALS: BP 149/70; PULSE 84; PULSE 98; RESP 18; TEMP 37; O2SAT 98
--- NOTE | 2021-10-17 12:02 | EXP.DC.SUM ---
General Admission date:: 10/12/21 Discharge date: 10/17/21 HPI HPI HPI: This is a 75-year-old white female who presented to [facility] with complaints of chest pain.? The patient is a very poor historian so it is really hard to get an accurate review of systems and HPI on this patient.? But she reports that she had chest pain the night before her admission and then her daughter states that she called her the morning of admission may be around 10 AM complaining of chest pain.? The patient states that she was having sharp chest pains that lasted 2 minutes and were associated with shortness of breath.? However her daughter states that she had the chest pain through the night and into the next morning as well and it sounded like it lasted for several hours.? It is unclear how long she really had the chest pain.? The patient reports that she took Tylenol and the pain subsided within an hour.? She does not have any chest pain this morning but she is complaining of low back pain which she states is chronic.? She does appear a little uncomfortable this morning but she states her only symptom is the low back pain.? Her daughter took her to [facility] where she was found to have a non-STEMI and then she was transferred here to [facility].? Her troponin is elevated at 2.75 consistent with a non-ST elevation myocardial infarction.? She does have a history of hypertension and hyperlipidemia.? She is a former smoker.? It is questionable whether or not she has a family history of ischemic heart disease.? At 1 point the patient told us that she had no family history of heart disease and then she said she did.? The daughter is unsure of any family history. Hospital Course Hospital Course Hospital Course: pt was admitted to [facility] with chest pain and had card cath APPROVED REPORT Patient Location: Inpatient Forensic Social Worker: CANDI Temple RT (R) PROCEDURES Left heart catheterization Left ventriculogram Selective coronary angiogram Drug-eluting stent deployment to the ostial proximal dominant right coronary artery INDICATION Acute non-ST elevation myocardial infarction, Coronary artery dissection/disease Informed consent was obtained prior to the procedure.? COMPLICATIONS NONE Estimated Blood Loss: LESS THAN 10 ML TECHNIQUE One percent lidocaine used to anesthetize the right anterior aspect of the wrist. The right radial artery was accessed via the Seldinger technique.? A 6 Romansh sheath was placed in the right radial artery. 2.5 mg of verapamil, 800 mcg of nitroglycerin, 1mg Lidocaine and 5000 U Heparin were given through the arterial sheath.? The papa catheter was also used to perform right coronary artery selective angiogram.? During the angiogram it was noticed the dissection was present in the proximal segment.? It is possible it was catheter induced however the catheter was coaxial and appeared nicely aligned with the right coronary artery.? It is also possible there was a pre-existing dissection which was the etiology for the elevated troponin level.? Because there appeared to be a propagation of the dissection therapeutic heparin was immediately administered and a Choice PT extra-support wire was gently passed through the true lumen.? A 3.5 x 26 mm resolute [place] stent was placed in the ostial proximal segment of the right coronary artery deployed at 24 [place] reducing the critical life-threatening dissection to 0%.? PRETTY-3 flow was present before and after the procedure with transient PRETTY II flow in the presence of the dissection.? Following this the apparatus was removed from the right coronary artery and the same catheter was used to perform selective coronary angiography of the left coronary system as well as left ventriculogram and left heart catheterization at the end the procedure the apparatus was removed the sheath was removed and hemostasis achieved using TR b
--- NOTE | 2021-10-17 13:07 | HMH.PHACL ---
PHA [employer] Developer Discharge Med Pants Presser: Elva Aguila has received discharge medication counseling on the following medications: ASPIRIN (NEW) BRILINTA (NEW) METOPROLOL (NEW) ENTRESTO (NEW) ATORVASTATIN (NEW) PATIENT IS TO STOP PRAVASTATIN. SPOKE TO PATIENT'S DAUGHTER. ALSO STARTING JARDIANCE, XARELTO, AMIODARONE. LASIX DOSE CHANGED TO 20MG DAILY AND GABAPENTIN DOSE DECREASED. NEW PRESCRIPTIONS SENT TO [facility]. -SOURAV LUJAN, AFSHAND
--- NOTE | 2021-10-19 13:48 | CARE MANAGER ---
Attempted to contact patient x2 related to hospital discharge. Left VM. SKYLAR Richardson
== END 2021-10-17 13:36 | disposition home or self-care (01) | DRG 246 ==
PROVIDERS: Family Medicine; Internal Medicine; Nurse Practitioner Family; Admitting Provider Emergency Medicine; PCP Family Medicine; Visit Provider Emergency Medicine
PROC: 027034Z Dilation of Coronary Artery, One Artery with Drug-eluting Intraluminal Device, Percutaneous Approach (ICD-10-PCS; principal; 2021-10-13 12:00)
DX: I21.4 Non-ST elevation (NSTEMI) myocardial infarction (principal); I25.42 Coronary artery dissection; I50.21 Acute systolic (congestive) heart failure; I48.92 Unspecified atrial flutter; I42.9 Cardiomyopathy, unspecified; I25.118 Atherosclerotic heart disease of native coronary artery with other forms of angina pectoris; I11.0 Hypertensive heart disease with heart failure; E78.5 Hyperlipidemia, unspecified; N18.9 Chronic kidney disease, unspecified; Z79.899 Other long term (current) drug therapy; Z79.01 Long term (current) use of anticoagulants; N14.1 Nephropathy induced by other drugs, medicaments and biological substances
CPT/HCPCS: 36415; 71045; 80048; 80053; 80061; 80076; 82962; 83735; 84443; 84484; 85007; 85025; 85347; 92928; 93005; 93306; 93458; 99152; C1725; C1769; C1876; C9600; C9803; J1644; Q9967; U0003; U0005

== ENCOUNTER 2021-10-31 16:31 | Emergency (ER) | payer MEDICARE, SELFPAY ==
[2021-10-31] VITALS (35 sets, daily range): BP systolic 74–121; BP diastolic 22–92; PULSE 47–68; RESP 13–25; TEMP 36.6; O2SAT 93–100; BMI 28.7
--- NOTE | 2021-10-31 16:39 | XR_ITS ---
PROCEDURE INFORMATION: Exam: XR Chest Exam date and time: 10/31/2021 9:24 PM Age: 75 years old Clinical indication: Injury or trauma; Fall; Blunt trauma (contusions or hematomas) TECHNIQUE: Imaging protocol: Radiologic exam of the chest. Views: 1 view. COMPARISON: CR XR CHEST PORTABLE 10/13/2021 9:35 AM FINDINGS: Tubes, catheters and devices: Examination is limited by overlying electrodes/electronic device. Lungs: Mild left basilar atelectasis and/or infiltrate. Right mid to lower lung zone calcified granuloma. Pleural spaces: Unremarkable. No pleural effusion. No pneumothorax. Heart/Mediastinum: Unremarkable. No cardiomegaly. Diaphragm: Elevation of the left hemidiaphragm. Bones/joints: Osteopenia. There are degenerative changes involving the shoulders and spine. IMPRESSION: Mild left basilar atelectasis and/or infiltrate.
--- NOTE | 2021-10-31 16:39 | XR_ITS ---
PROCEDURE INFORMATION: Exam: XR Right Femur Exam date and time: 10/31/2021 9:24 PM Age: 75 years old Clinical indication: Injury or trauma; Fall; Blunt trauma; Thigh or upper leg; Right; Additional info: Fall, R and L hip pain TECHNIQUE: Imaging protocol: Radiologic exam of the Right femur. Views: 2 views. COMPARISON: No relevant prior studies available. FINDINGS: Bones/joints: There are degenerative changes. No definite acute fracture or dislocation. Soft tissues: Unremarkable. IMPRESSION: No definite acute osseous abnormality.
--- NOTE | 2021-10-31 16:39 | XR_ITS ---
PROCEDURE INFORMATION: Exam: XR Pelvis Exam date and time: 10/31/2021 9:24 PM Age: 75 years old Clinical indication: Injury or trauma; Fall; Blunt trauma (contusions or hematomas); Bilateral; Hip; Additional info: Falls, bilateral l>r hip pain TECHNIQUE: Imaging protocol: Radiologic exam of the pelvis. Views: 1 or 2 view. COMPARISON: No relevant prior studies available. FINDINGS: Bones/joints: There are degenerative changes involving the lumbar spine and hip joints. Osteopenia. No definite acute fracture or dislocation. Soft tissues: Unremarkable. Intraperitoneal space: There is rounded density within the pelvis measuring up to 11 cm. IMPRESSION: 1. No definite acute osseous abnormality. 2. Rounded density within the pelvis measuring up to 11 cm. Possible urinary bladder, mass not excluded.
--- NOTE | 2021-10-31 16:39 | XR_ITS ---
PROCEDURE INFORMATION: Exam: XR Left Femur Exam date and time: 10/31/2021 9:24 PM Age: 75 years old Clinical indication: Injury or trauma; Fall; Blunt trauma; Thigh or upper leg; Left; Additional info: Fall, R and L hip pain TECHNIQUE: Imaging protocol: Radiologic exam of the Left femur. Views: 2 views. COMPARISON: No relevant prior studies available. FINDINGS: Bones/joints: There are degenerative changes. No definite acute fracture or dislocation. Soft tissues: Unremarkable. IMPRESSION: No acute osseous abnormality.
--- NOTE | 2021-10-31 16:43 | CT_ITS ---
PROCEDURE INFORMATION: Exam: CT Head Without Contrast Exam date and time: 10/31/2021 9:33 PM Age: 75 years old Clinical indication: Injury or trauma; Fall; Blunt trauma (contusions or hematomas); Additional info: Fall, amnesia TECHNIQUE: Imaging protocol: Computed tomography of the head without contrast. Radiation optimization: All CT scans at this facility use at least one of these dose optimization techniques: automated exposure control; mA and/or kV adjustment per patient size (includes targeted exams where dose is matched to clinical indication); or iterative reconstruction. COMPARISON: No relevant prior studies available. FINDINGS: Brain: Age-related volume loss. Decreased attenuation of the supratentorial white matter is likely secondary to chronic microvascular ischemia. No acute intracranial hemorrhage, midline shift or intracranial mass effect. Cerebral ventricles: Ventriculomegaly is commensurate for degree of volume loss. Paranasal sinuses: Visualized sinuses are unremarkable. No fluid levels. Mastoid air cells: Visualized mastoid air cells are well aerated. Bones/joints: Unremarkable. No acute fracture. Soft tissues: Unremarkable. IMPRESSION: No acute intracranial abnormality.
--- NOTE | 2021-10-31 16:44 | HMH.EDGENADL ---
Discharge Plan Disposition Patient Disposition: Admitted As Inpatient Condition: Serious Chief Complaint: Fall Prescriptions Prescriptions: No Action gabapentin 300 mg capsule 300 mg PO HS Qty: 30 2RF Label Comments: Take 1-2 CAPSULES EVERY EVENING furosemide 40 mg tablet 20 mg PO DAILY Qty: 30 0RF Label Comments: Take 1 Tablet(s) 1 time a day famotidine 40 mg tablet 40 mg PO BID Qty: 30 0RF Label Comments: TAKE ONE TABLET TWICE DAILY NEEDED levothyroxine 50 mcg tablet 50 mcg PO DAILY Qty: 30 0RF Label Comments: TAKE ONE TABLET BY MOUTH EVERY DAY pantoprazole 40 mg Tablet,Delayed Release (Dr/Ec) 40 mg PO DAILY Qty: 30 0RF ferrous sulfate 325 mg (65 mg iron) tablet 325 mg PO QPMWITHMEAL Qty: 30 0RF Label Comments: Take 1 tablet(s) every day at dinner. atorvastatin 40 mg tablet 40 mg PO HS amiodarone 200 mg tablet 200 mg PO BID metoprolol succinate [Toprol XL] 50 mg tablet extended release 24 hr 50 mg PO DAILY aspirin 81 mg tablet,chewable 81 mg PO DAILY Brilinta 90 mg tablet 90 mg PO BID Xarelto 15 mg tablet 15 mg PO QPMWITHMEAL Jardiance 10 mg tablet 10 mg PO DAILY Entresto 24-26 mg tablet 1 tab PO BID Referrals Follow up/Referrals: Sujatha Loaiza [Primary Care Provider] - See instructions Clinical Impressions Clinical Impression: Beta sheri toxicity Discharge ED Provider: Remberto Dickson General Adult HPI General Chief complaint: Fall Stated complaint: oo Time Seen by Provider: 10/31/21 16:35 Mode of Arrival: EMS Source of Information: Patient History of Present Illness HPI narrative: This is a 75-year-old female with history of hypertension, hyperlipidemia, CAD status post stenting on Brilinta, chronic renal failure, paroxysmal A. fib, CHF with LifeVest in place presenting with fall. Patient is poor historian. She states that she fell from standing after tripping a couple of days ago, but does not remember exactly when. She is hurting in her elbow, but denies any other trauma. She states I think I have blood in my urine and a UTI, but denies jagdish hematuria, dysuria, diarrhea, constipation, melena, bright red blood per rectum, abdominal pain, fevers, chills, cough, hemoptysis, hematemesis, abnormal vaginal bleeding or discharge. She states that she has had intermittent palpitations, lightheadedness and shortness of breath when standing from seated position and ambulating, but denies jagdish chest pain, diaphoresis, nausea, vomiting, or any other concerning history. Related Data Home Medications Medication Instructions Recorded Confirmed amiodarone 200 mg tablet 200 mg PO BID Heart rhythm 10/31/21 10/31/21 aspirin 81 mg chewable tablet 81 mg PO DAILY heart health 10/31/21 10/31/21 atorvastatin 40 mg tablet 40 mg PO HS Cholesterol 10/31/21 10/31/21 empagliflozin 10 mg tablet 10 mg PO DAILY dm 10/31/21 10/31/21 (Jardiance) metoprolol succinate 50 mg 50 mg PO DAILY htn 10/31/21 10/31/21 tablet,extended release 24 hr (Toprol XL) rivaroxaban 15 mg tablet (Xarelto) 15 mg PO QPMWITHMEAL Blood thinner 10/31/21 10/31/21 sacubitril 24 mg-valsartan 26 mg 1 tab PO BID htn 10/31/21 10/31/21 tablet (Entresto) ticagrelor 90 mg tablet (Brilinta) 90 mg PO BID Blood thinner 10/31/21 10/31/21 Previous Rx's Medication Instructions Recorded famotidine 40 mg tablet 40 mg PO BID Indigestion #30 tabs 10/17/21 ferrous sulfate 325 mg (65 mg 325 mg PO QPMWITHMEAL iron 10/17/21 iron) tablet supplement #30 tabs furosemide 40 mg tablet 20 mg PO DAILY diuretic #30 tabs 10/17/21 levothyroxine 50 mcg tablet 50 mcg PO DAILY hypothyroidism #30 10/17/21 tabs pantoprazole 40 mg tablet,delayed 40 mg PO DAILY acid reflux #30 tabs 10/17/21 release gabapentin 300 mg capsule 300 mg PO HS nerve pain #30 caps 10/25/21 Allergies Allergy/AdvReac Type Severity Reaction Status Date / Time No
[2021-10-31 17:01] LABS: Basophils # 0.1 K/mm3 (0-0.2); Eosinophils # 0.2 K/mm3 (0.0-0.4); Eosinophils % 2.2 % (0.1-12.0); Hematocrit 33.6 % (37.0-47.0); Hemoglobin 10.2 g/dL (12.2-16.2); Lymphocytes % 12.9 % (10-50); Mean Corpuscular HGB Conc 30.3 g/dL (31.8-35.4); Mean Corpuscular Hemoglobin 30.3 pg (27.0-31.2); Mean Corpuscular Volume 99.9 fl (81-99); Mean Platelet Volume 8.2 fl (7.4-10.4); Monocytes # 0.3 K/mm3 (0.1-1.0); Monocytes % 4.1 % (1.7-9.3); Neutrophils # 5.9 K/mm3 (1.8-7.8); Neutrophils % 79.8 % (37.0-80.0); Platelet Count 515 K/mm3 (142-424); Red Blood Count 3.36 M/mm3 (4.20-5.40); Red Cell Distribution Width 14.3 % (11.5-17.5); White Blood Count 7.4 K/mm3 (4.8-10.8)
--- NOTE | 2021-10-31 17:01 | PC.NURSE ---
pt given warm blanket
[2021-10-31 17:05] LABS: Microscopic, Urine URINE MICROSCOPIC (MICROSCOPIC)
[2021-10-31 17:06] LABS: Appearance,Urine CLOUDY (Clear); Bilirubin,Urine Negative (Negative); Blood, Urine 2+ (Negative); Color,Urine YELLOW (Yellow); Glucose,Urine (UA) Negative (Negative); Ketones,Urine Negative (Negative); Leukocyte Esterase,Urine 3+ (Negative); Nitrate,Urine Negative (Negative); PH,Urine 5.5 (5.0-8.5); Protein,Urine TRACE (Negative); Urobilinogen,Urine 0.2 EU/dl (0.2)
--- NOTE | 2021-10-31 17:10 | PC.NURSE ---
due to pt labs and results MD wants to hold on ordered antibiotics at this time.
[2021-10-31 17:14] LABS: Lactic Acid 1.2 mmol/L (0.7-2.1)
[2021-10-31 17:27] LABS: WBC,Urine TNTC #/hpf (0-3)
[2021-10-31 17:29] LABS: RBC,Urine TNTC #/hpf (0-3); Squamous Epithelial Cell,Urine Occasional #/hpf (0-5)
[2021-10-31 17:30] LABS: Bacteria,Urine 1+ /lpf; Trichomonas,Urine 3+ /lpf
--- NOTE | 2021-10-31 17:40 | PC.NURSE ---
pt improved the beta sheri reversal meds, levophed drip stopped
--- NOTE | 2021-10-31 17:54 | ECG_ITS ---
APPROVED REPORT Exam: Resting ECG HR:66 bpm ECG Measurements Heart Rate 66 AXES AR 226 P 49 QRSd 153 QRS -73 QT 440 T 60 QTc 454 Conclusion SINUS RHYTHM WITH FIRST DEGREE AV BLOCK LEFT AXIS DEVIATION [QRS AXIS < -30] RIGHT BUNDLE BRANCH BLOCK [120+ ms QRS DURATION, UPRIGHT V1, 40+ ms S IN I/aVL/V4/V5/V6] ABNORMAL ECG UNCONFIRMED REPORT Electronically signed by : Earl Weber MD 11/01/2021 15:44:43
--- NOTE | 2021-10-31 18:14 | PC.NURSE ---
placed call out for Dr Dowling
--- NOTE | 2021-10-31 18:29 | PC.NURSE ---
dr lau spoke with dr dumont
[2021-10-31 18:33] LABS: Magnesium 2.2 mg/dl (1.6-2.3)
--- NOTE | 2021-10-31 18:45 | PC.NURSE ---
levophed started back due to pt decreased in bp per MD
--- NOTE | 2021-10-31 19:00 | PC.NURSE ---
levophed increased 8 mcg due to pt bp 76/30
[2021-10-31 19:37] LABS: Coronavirus 19, PCR Not Detected (NotDetected); Influenza A, PCR Not Detected (NotDetected); Influenza B, PCR Not Detected (NotDetected)
--- NOTE | 2021-10-31 20:00 | PC.NURSE ---
PATIENT ADMITTED TO [address], TO SERVICE OF DR. BECKHAM WITH ADMITTING DX OF BETA MIRIAM OVERDOSE.
[2021-10-31 20:03] LABS: Alanine Aminotransferase 491 U/L (12-78); Albumin Level 3.9 g/dl (3.5-5.0); Albumin/Globulin Ratio 1.1 (1.1-1.8); Aspartate Amino Transferase 396 U/L (14-36); Bilirubin,Total 0.6 mg/dl (0.2-1.3); Calcium 8.6 mg/dl (8.4-10.2); Carbon Dioxide 16 mmol/L (22.0-30.0); Chloride 107 mmol/L (98-107); Creatinine Clearance Estimated 12 mL/min (50-200); Estimated Glomerular Filt Rate 7 ml/min (>60); GFR (African American) 8 ML/MIN (>60); Globulin 3.4 g/dL (1.3-3.2); Glucose 157 mg/dl (74-100); NT Pro Brain Natriuretic Pep. 1700 pg/mL (0-450); Sodium 141 mmol/L (136-145); Total Protein,Serum 7.3 g/dl (6.3-8.2)
[2021-10-31 20:05] LABS: Troponin I 0.05 ng/ml (0.00-0.034)
[2021-10-31 20:08] LABS: Alkaline Phosphatase 1588 U/L (38-126)
[2021-10-31 20:16] LABS: Blood Urea Nitrogen 93 mg/dl (7-17)
--- NOTE | 2021-10-31 20:17 | PC.NURSE ---
Critical labs called to Андрей Hanna, results given to RHIANNON bradshaw
--- NOTE | 2021-10-31 20:22 | PC.NURSE ---
PT WITH DECREASED MAP AND DECREASED BLOOD PRESSURE. DR. NOONAN MADE AWARE. EPI GTT INITIATED PER MD ORDER AFTER CONFIRMATION WITH [facility]. PT REMAINS ALERT AND ORIENTED. FAMILY AT BEDSIDE. WCM.
--- NOTE | 2021-10-31 20:44 | PC.NURSE ---
Per Dr. Sykes admission cancelled
--- NOTE | 2021-10-31 21:26 | CT_ITS ---
PROCEDURE INFORMATION: Exam: CT Cervical Spine Without Contrast Exam date and time: 10/31/2021 9:40 PM Age: 75 years old Clinical indication: Injury or trauma; Fall; Blunt trauma TECHNIQUE: Imaging protocol: Computed tomography of the cervical spine without contrast. Radiation optimization: All CT scans at this facility use at least one of these dose optimization techniques: automated exposure control; mA and/or kV adjustment per patient size (includes targeted exams where dose is matched to clinical indication); or iterative reconstruction. COMPARISON: CT HEAD/BRAIN WO CON 10/31/2021 9:33 PM FINDINGS: Bones/joints: Nonspecific straightening. Trace anterolisthesis of C7 on T1. Vertebral body heights are preserved. Kvdd-mh-vavrlczw degenerative change about the dens. Moderate prevertebral osteophytosis. There are bilateral facet joint degenerative changes. No acute cervical spine fracture. There are multilevel cervical central and foraminal stenoses. Lungs: Lung apices are normal. Pleural spaces: No visible pneumothorax. Soft tissues: Unremarkable. IMPRESSION: No acute cervical spine fracture.
--- NOTE | 2021-10-31 22:28 | PC.NURSE ---
stop epi drip @ this time
[2021-10-31 23:52] LABS: Anion Gap 22.4 mEq/L (5-15); Calcium 8.9 mg/dl (8.4-10.2); Carbon Dioxide 17 mmol/L (22.0-30.0); Chloride 105 mmol/L (98-107); Creatinine Clearance Estimated 7 mL/min (50-200); Estimated Glomerular Filt Rate 7 ml/min (>60); GFR (African American) 9 ML/MIN (>60); Glucose 141 mg/dl (74-100); Sodium 138 mmol/L (136-145)
[2021-11-01] VITALS (11 sets, daily range): BP systolic 71–103; BP diastolic 37–52; PULSE 54–86; RESP 20–22; TEMP 36.9; O2SAT 94–100
--- NOTE | 2021-11-01 | CT_ITS ---
PROCEDURE INFORMATION: Exam: CT Abdomen And Pelvis Without Contrast Exam date and time: 11/01/2021 12:28 AM Age: 75 years old Clinical indication: Other: Urinary retention TECHNIQUE: Imaging protocol: Computed tomography of the abdomen and pelvis without contrast. Radiation optimization: All CT scans at this facility use at least one of these dose optimization techniques: automated exposure control; mA and/or kV adjustment per patient size (includes targeted exams where dose is matched to clinical indication); or iterative reconstruction. COMPARISON: CR XR PELVIS 1-2V 10/31/2021 9:24 PM FINDINGS: Limitations: Patient motion. Lungs: Right middle lobe pulmonary nodule measures 3 mm. Right lower lobe pulmonary nodule measures 5 mm. Bibasilar dependent change. Nodule at the lingula measures 3 mm. Liver: Normal. No mass. Gallbladder and bile ducts: There are infiltrative changes about the gallbladder. Minimal hypodensity within the gallbladder may represent low density calculus, tiny amount of gas however not excluded. Pancreas: Pancreas is atrophic. Spleen: There are splenic calcifications. Adrenal glands: Mild nonspecific thickening involving the bilateral adrenal glands. Kidneys and ureters: Symmetric bilateral perinephric infiltration, nonspecific however typically chronic. No hydronephrosis. Stomach and bowel: Diverticulosis without diverticulitis. Appendix: Normal appendix. Intraperitoneal space: Unremarkable. No free air. No significant fluid collection. Vasculature: Vascular calcification. Lymph nodes: Unremarkable. No enlarged lymph nodes. Urinary bladder: Rocha catheter within the urinary bladder. Minimal gas within the urinary bladder likely secondary to catheterization. There are mild infiltrative changes about the urinary bladder. Reproductive: Unremarkable as visualized. Bones/joints: There are degenerative changes involving the spine. There are degenerative changes involving both hips. Soft tissues: Unremarkable. IMPRESSION: 1. Infiltrative changes about the gallbladder raising concern for acute cholecystitis. There is punctate low density within the gallbladder which may reflect low density calculus versus tiny amount of gas, emphysematous cystitis not excluded. Clinical correlation and follow-up recommended. 2. Mild infiltrative changes about the urinary bladder, please correlate for possible cystitis. 3. Non emergent findings as above. 4. There are several nodules at the lung bases measuring up to 5 mm. For patients at low risk (minimal or absent history of smoking and of other known risk factors), no routine follow-up is indicated. For patients at high risk (history of smoking or of other known risk factors), consider optional CT Chest at 12 months. (Reference: [place]) REFERENCES: [place] Allen, et al. Guidelines for Management of Incidental Pulmonary Nodules Detected on CT Images: From the Fleischner Society 2017. Radiology. 2017;284(1):228-243.
[2021-11-01 00:01] LABS: Blood Urea Nitrogen 108 mg/dl (7-17); Potassium 6.4 mmoL/L (3.5-5.1)
--- NOTE | 2021-11-01 00:13 | PC.NURSE ---
levophed decreased to 6 mcg
--- NOTE | 2021-11-01 00:46 | PC.NURSE ---
levophed decreased to 4 mcg
--- NOTE | 2021-11-01 01:04 | PC.NURSE ---
levophed decreased to 2 mcg
--- NOTE | 2021-11-01 01:30 | PC.NURSE ---
levophed drip stopped @ this time
[2021-11-01 01:47] LABS: Chloride 107 mmol/L (98-107); Sodium 141 mmol/L (136-145)
[2021-11-01 01:50] LABS: Anion Gap 23.9 mEq/L (5-15); Calcium 8.2 mg/dl (8.4-10.2); Carbon Dioxide 17 mmol/L (22.0-30.0); Creatinine Clearance Estimated 13 mL/min (50-200); Estimated Glomerular Filt Rate 8 ml/min (>60); GFR (African American) 10 ML/MIN (>60); Glucose 91 mg/dl (74-100)
[2021-11-01 01:53] LABS: Potassium 6.9 mmoL/L (3.5-5.1)
[2021-11-01 01:54] LABS: Blood Urea Nitrogen 98 mg/dl (7-17)
--- NOTE | 2021-11-01 02:15 | PC.NURSE ---
potassium 6.9 BUN 98 crea 5.3 notified shukri
--- NOTE | 2021-11-01 02:40 | PC.NURSE ---
Dr. Sykes on phone with , patient placed on waiting list
--- NOTE | 2021-11-01 02:48 | PC.NURSE ---
CB contacted, extensive waiting list for ICU, per Dr. Sykes we will not have her added to wait list
--- NOTE | 2021-11-01 02:52 | PC.NURSE ---
shukri on phone with dr Russell with [facility] @ this time
--- NOTE | 2021-11-01 02:55 | PC.NURSE ---
Call to [facility] at 0250, spoke with Luzma she will put a case together and have a call made back
--- NOTE | 2021-11-01 03:14 | PC.NURSE ---
Dr barreto accepted pt awaiting bed assignment
--- NOTE | 2021-11-01 03:20 | HMH.EDFALL ---
Discharge Plan Disposition Patient Disposition: Admitted As Inpatient Condition: Serious Prescriptions Prescriptions: No Action gabapentin 300 mg capsule 300 mg PO HS Qty: 30 2RF Label Comments: Take 1-2 CAPSULES EVERY EVENING furosemide 40 mg tablet 20 mg PO DAILY Qty: 30 0RF Label Comments: Take 1 Tablet(s) 1 time a day famotidine 40 mg tablet 40 mg PO BID Qty: 30 0RF Label Comments: TAKE ONE TABLET TWICE DAILY NEEDED levothyroxine 50 mcg tablet 50 mcg PO DAILY Qty: 30 0RF Label Comments: TAKE ONE TABLET BY MOUTH EVERY DAY pantoprazole 40 mg Tablet,Delayed Release (Dr/Ec) 40 mg PO DAILY Qty: 30 0RF ferrous sulfate 325 mg (65 mg iron) tablet 325 mg PO QPMWITHMEAL Qty: 30 0RF Label Comments: Take 1 tablet(s) every day at dinner. atorvastatin 40 mg tablet 40 mg PO HS amiodarone 200 mg tablet 200 mg PO BID metoprolol succinate [Toprol XL] 50 mg tablet extended release 24 hr 50 mg PO DAILY aspirin 81 mg tablet,chewable 81 mg PO DAILY Brilinta 90 mg tablet 90 mg PO BID Xarelto 15 mg tablet 15 mg PO QPMWITHMEAL Jardiance 10 mg tablet 10 mg PO DAILY Entresto 24-26 mg tablet 1 tab PO BID Referrals Follow up/Referrals: Sujatha Loaiza [Primary Care Provider] - See instructions Clinical Impressions Clinical Impression: Beta sheri toxicity Discharge ED Provider: Remberto Dickson [facility] General Chief Complaint: Fall Stated Complaint: oo Time Seen by Provider: 10/31/21 16:35 Mode of Arrival: EMS Source of Information: Patient Limitations: No Limitations Description of Symptoms (Recalled from ER Triage Doc. by RN): pt was being seen per EMS for blood in urine and a skin tear on right elbow she got 2 days ago when she fell. PT became hypotensive during route with sbp of 73 Related Data Home Medications Medication Instructions Recorded Confirmed amiodarone 200 mg tablet 200 mg PO BID Heart rhythm 10/31/21 10/31/21 aspirin 81 mg chewable tablet 81 mg PO DAILY heart health 10/31/21 10/31/21 atorvastatin 40 mg tablet 40 mg PO HS Cholesterol 10/31/21 10/31/21 empagliflozin 10 mg tablet 10 mg PO DAILY dm 10/31/21 10/31/21 (Jardiance) metoprolol succinate 50 mg 50 mg PO DAILY htn 10/31/21 10/31/21 tablet,extended release 24 hr (Toprol XL) rivaroxaban 15 mg tablet (Xarelto) 15 mg PO QPMWITHMEAL Blood thinner 10/31/21 10/31/21 sacubitril 24 mg-valsartan 26 mg 1 tab PO BID htn 10/31/21 10/31/21 tablet (Entresto) ticagrelor 90 mg tablet (Brilinta) 90 mg PO BID Blood thinner 10/31/21 10/31/21 Previous Rx's Medication Instructions Recorded famotidine 40 mg tablet 40 mg PO BID Indigestion #30 tabs 10/17/21 ferrous sulfate 325 mg (65 mg 325 mg PO QPMWITHMEAL iron 10/17/21 iron) tablet supplement #30 tabs furosemide 40 mg tablet 20 mg PO DAILY diuretic #30 tabs 10/17/21 levothyroxine 50 mcg tablet 50 mcg PO DAILY hypothyroidism #30 10/17/21 tabs pantoprazole 40 mg tablet,delayed 40 mg PO DAILY acid reflux #30 tabs 10/17/21 release gabapentin 300 mg capsule 300 mg PO HS nerve pain #30 caps 10/25/21 Allergies Allergy/AdvReac Type Severity Reaction Status Date / Time No Known Allergies Allergy Verified 10/27/21 14:06 [facility] Medical History (Updated 10/31/21 @ 19:59 by Remberto Dickson MD) Abnormal electrocardiogram [ECG] [EKG] Abnormal electrocardiogram [ECG] [EKG] Adult-onset obesity CAD (coronary atherosclerotic disease) Contrast dye induced nephropathy CRF (chronic renal failure) Hyperlipidemia Hypertension PAF (paroxysmal atrial fibrillation) Poor historian Shortness of Breath Surgical History (Updated 10/27/21 @ 14:48 by Isabela Dick APRN) Abn react-cardiac cath History of coronary artery stent placement History of heart artery stent Family History Father Heart attack Diabetes Hyperte
--- NOTE | 2021-11-01 03:33 | PC.NURSE ---
reported given to Reema @ [facility] ICU and caleb notified that pt is ready for transported
--- NOTE | 2021-11-01 04:02 | PC.NURSE ---
Lysite arrived at this time .
== END 2021-11-01 04:13 | disposition short-term general hospital (02) ==
LOC: ER 19:59 → 2ND 20:18 → ER 11-01 03:28
PROVIDERS: Emergency Medicine; Emergency Provider Emergency Medicine; PCP Family Medicine
DX: I21.4 Non-ST elevation (NSTEMI) myocardial infarction (principal); N17.9 Acute kidney failure, unspecified; E87.5 Hyperkalemia; N39.0 Urinary tract infection, site not specified; Z79.899 Other long term (current) drug therapy; I48.0 Paroxysmal atrial fibrillation; N18.9 Chronic kidney disease, unspecified; I50.9 Heart failure, unspecified; I25.10 Atherosclerotic heart disease of native coronary artery without angina pectoris; Z95.5 Presence of coronary angioplasty implant and graft; I12.9 Hypertensive chronic kidney disease with stage 1 through stage 4 chronic kidney disease, or unspecified chronic kidney disease; Z20.822 Contact with and (suspected) exposure to COVID-19
CPT/HCPCS: 51702; 70450; 71045; 72125; 72170; 73552; 74176; 80048; 80053; 81001; 83605; 83735; 83880; 84484; 85025; 87040; 87077; 87086; 87186; 93005; 94640; 99291; C9803; J0696; J1610; U0003; U0005

== ENCOUNTER → 2021-12-08 11:08 | Outpatient (CLI) | payer MEDICARE, SELFPAY | PROVIDERS: PCP Emergency Medicine; Visit Provider Nurse Practitioner Family | DX: I25.10 Atherosclerotic heart disease of native coronary artery without angina pectoris (principal); I48.0 Paroxysmal atrial fibrillation; I50.20 Unspecified systolic (congestive) heart failure; I51.9 Heart disease, unspecified; R94.31 Abnormal electrocardiogram [ECG] [EKG]; Z95.5 Presence of coronary angioplasty implant and graft; I42.8 Other cardiomyopathies | CPT/HCPCS: 93306 ==

== ENCOUNTER → 2021-12-15 15:07 | Outpatient (CLI) | payer MEDICARE, SELFPAY ==
[2021-12-15 15:42] LABS: Basophils % 0.6 % (0.1-2.0); Eosinophils # 0.1 K/mm3 (0.0-0.4); Eosinophils % 1.5 % (0.1-12.0); Hematocrit 31.2 % (37.0-47.0); Hemoglobin 8.9 g/dL (12.2-16.2); Lymphocytes % 18.4 % (10-50); Mean Corpuscular HGB Conc 28.6 g/dL (31.8-35.4); Mean Corpuscular Hemoglobin 29.5 pg (27.0-31.2); Mean Corpuscular Volume 102.9 fl (81-99); Monocytes # 0.3 K/mm3 (0.1-1.0); Monocytes % 5.8 % (1.7-9.3); Neutrophils # 3.8 K/mm3 (1.8-7.8); Neutrophils % 73.8 % (37.0-80.0); Platelet Count 500 K/mm3 (142-424); Red Blood Count 3.03 M/mm3 (4.20-5.40); Red Cell Distribution Width 16.2 % (11.5-17.5); White Blood Count 5.2 K/mm3 (4.8-10.8)
[2021-12-15 16:11] LABS: Alanine Aminotransferase 25 U/L (12-78); Albumin Level 3.4 g/dl (3.5-5.0); Alkaline Phosphatase 306 U/L (38-126); Aspartate Amino Transferase 30 U/L (14-36); Bilirubin,Direct 0.1 mg/dl (0.0-0.4); Bilirubin,Indirect 0.2 mg/dL (0.0-0.9); Bilirubin,Total 0.3 mg/dl (0.2-1.3); Bilirubin,Unconjugated 0.3 mg/dL (0.0-1.1); Blood Urea Nitrogen 15 mg/dl (7-17); Calcium 8.5 mg/dl (8.4-10.2); Carbon Dioxide 24 mmol/L (22.0-30.0); Chloride 107 mmol/L (98-107); Chol/HDL Ratio 2.8 (1-3.5); Cholesterol 158 mg/dl (140-200); Estimated Glomerular Filt Rate 34 ml/min (>60); GFR (African American) 41 ML/MIN (>60); Glucose 133 mg/dl (74-100); HDL Cholesterol 57 mg/dl (40-60); Magnesium 1.6 mg/dl (1.6-2.3); Sodium 141 mmol/L (136-145); Triglycerides 149 mg/dl (30-150); VLDL Cholesterol 30 mg/dL (0-40)
[2021-12-15 16:23] LABS: Direct LDL Cholesterol 62.96 mg/dL (100-129)
[2021-12-15 16:28] LABS: Free T4 (Free Thyroxine) 1.98 ng/dl (0.78-2.19)
[2021-12-15 16:41] LABS: Thyroid Stimulating Hormone 3.59 uIU/mL (0.465-4.68)
== END ==
PROVIDERS: PCP Emergency Medicine; Visit Provider Physician Assistant
DX: I25.10 Atherosclerotic heart disease of native coronary artery without angina pectoris (principal); I42.8 Other cardiomyopathies; I48.0 Paroxysmal atrial fibrillation; I50.22 Chronic systolic (congestive) heart failure; I51.9 Heart disease, unspecified; R94.31 Abnormal electrocardiogram [ECG] [EKG]; Z95.5 Presence of coronary angioplasty implant and graft
CPT/HCPCS: 36415; 80048; 80061; 80076; 83735; 84439; 84443; 85025

== ENCOUNTER → 2022-01-05 12:56 | Outpatient (CLI) | payer MEDICARE, SELFPAY ==
--- NOTE | 2022-01-05 13:08 | XR_ITS ---
FINAL REPORT CLINICAL HISTORY: left shoulder pain FINDINGS: 3 views of the left shoulder were obtained. There is no acute fracture or dislocation. There are moderate hypertrophic changes at the AC joint. There are hypertrophic changes along the greater tuberosity. IMPRESSION: Hypertrophic changes of the AC joint and along the greater tuberosity may be due to prior surgery or trauma. Correlate with medical history. Reviewed, Interpreted and Dictated by Juan Hudson MD Transcribed by Wily Meneses Authenticated and [facility]
== END ==
PROVIDERS: PCP Emergency Medicine; Visit Provider Orthopaedic Surgery
DX: M25.512 Pain in left shoulder (principal)
CPT/HCPCS: 73030

== ENCOUNTER → 2022-02-18 17:47 | Outpatient (CLI) | payer MEDICARE, SELFPAY | PROVIDERS: PCP Emergency Medicine; Visit Provider Emergency Medicine | DX: U07.1 COVID-19 (principal) | CPT/HCPCS: C9803; U0003; U0005 ==

== ENCOUNTER → 2023-01-15 09:05 | Outpatient (CLI) | payer MEDICARE, MEDICAID, SELFPAY ==
--- NOTE | 2023-01-15 09:08 | XR_ITS ---
FINAL REPORT CLINICAL HISTORY: Shortness of breath and chest pain COMPARISON: 10/31/2021 FINDINGS: There is no evidence of effusion or other pleural disease. There is chronic elevation of the left diaphragm. The cardiac silhouette is unremarkable. IMPRESSION: Unremarkable chest exam. Reviewed, Interpreted and Dictated by Андрей Price MD Transcribed by Liya Mason Authenticated and [facility]
[2023-01-15 09:57] LABS: Basophils % 0.4 % (0.1-2.0); Eosinophils # 0.1 K/mm3 (0.0-0.4); Eosinophils % 2.4 % (0.1-12.0); Lymphocytes # 0.9 K/mm3 (0.7-4.5); Lymphocytes % 16.3 % (10-50); Mean Corpuscular HGB Conc 32.3 g/dL (31.8-35.4); Mean Corpuscular Hemoglobin 31.3 pg (27.0-31.2); Mean Corpuscular Volume 97.1 fl (81-99); Mean Platelet Volume 8.4 fl (7.4-10.4); Monocytes # 0.4 K/mm3 (0.1-1.0); Monocytes % 7.5 % (1.7-9.3); Neutrophils # 3.9 K/mm3 (1.8-7.8); Neutrophils % 73.3 % (37.0-80.0); Platelet Count 226 K/mm3 (142-424); Red Cell Distribution Width 15.2 % (11.5-17.5); White Blood Count 5.3 K/mm3 (4.8-10.8)
[2023-01-15 10:45] LABS: Alanine Aminotransferase 22 U/L (12-78); Alkaline Phosphatase 147 U/L (38-126); Aspartate Amino Transferase 29 U/L (14-36); Bilirubin,Direct 0.1 mg/dl (0.0-0.4); Bilirubin,Indirect 0.2 mg/dL (0.0-0.9); Bilirubin,Total 0.3 mg/dl (0.2-1.3); Bilirubin,Unconjugated 0.2 mg/dL (0.0-1.1); Blood Urea Nitrogen 27 mg/dl (7-17); Calcium 8.5 mg/dl (8.4-10.2); Carbon Dioxide 28 mmol/L (22.0-30.0); Chloride 101 mmol/L (98-107); Chol/HDL Ratio 2.6 (1-3.5); Cholesterol 154 mg/dl (140-200); Estimated Glomerular Filt Rate 29 ml/min (>60); GFR (African American) 35 ML/MIN (>60); Glucose 102 mg/dl (74-100); HDL Cholesterol 59 mg/dl (40-60); Triglycerides 113 mg/dl (30-150); VLDL Cholesterol 23 mg/dL (0-40)
[2023-01-15 10:46] LABS: Albumin Level 4.2 g/dl (3.5-5.0); Anion Gap 11.6 mEq/L (5-15); Potassium 4.6 mmoL/L (3.5-5.1); Sodium 136 mmol/L (136-145); Total Protein,Serum 7.2 g/dl (6.3-8.2)
[2023-01-15 10:56] LABS: Direct LDL Cholesterol 59.37 mg/dL (100-129)
== END ==
PROVIDERS: PCP Internal Medicine; Visit Provider Nurse Practitioner
DX: I25.10 Atherosclerotic heart disease of native coronary artery without angina pectoris (principal); I48.0 Paroxysmal atrial fibrillation; R06.02 Shortness of breath; R94.31 Abnormal electrocardiogram [ECG] [EKG]; Z95.5 Presence of coronary angioplasty implant and graft; E11.9 Type 2 diabetes mellitus without complications; I11.9 Hypertensive heart disease without heart failure; I63.9 Cerebral infarction, unspecified
CPT/HCPCS: 71046; 80048; 80061; 80076; 84439; 85025

== ENCOUNTER 2023-02-20 09:49 | Outpatient (CLI) | payer MEDICARE, MEDICAID, SELFPAY ==
[2023-02-20 15:31] LABS: Anion Gap 10.3 mEq/L (5-15); Blood Urea Nitrogen 25 mg/dl (7-17); Calcium 7.9 mg/dl (8.4-10.2); Carbon Dioxide 28 mmol/L (22.0-30.0); Chloride 106 mmol/L (98-107); Estimated Glomerular Filt Rate 29 ml/min (>60); GFR (African American) 35 ML/MIN (>60); Glucose 103 mg/dl (74-100); Potassium 4.3 mmoL/L (3.5-5.1); Sodium 140 mmol/L (136-145)
== END 2023-02-20 23:59 ==
LOC: LAB 09:51
PROVIDERS: PCP Internal Medicine; Visit Provider Nurse Practitioner
DX: I25.10 Atherosclerotic heart disease of native coronary artery without angina pectoris (principal); I48.0 Paroxysmal atrial fibrillation; R06.02 Shortness of breath; R07.89 Other chest pain; R94.31 Abnormal electrocardiogram [ECG] [EKG]; Z95.5 Presence of coronary angioplasty implant and graft
CPT/HCPCS: 36415; 80048

== ENCOUNTER 2023-03-05 07:19 | Outpatient (CLI) | payer MEDICARE, MEDICAID, SELFPAY ==
--- NOTE | 2023-03-05 07:26 | NM_ITS ---
APPROVED REPORT Exam: Nuclear Stress Test Indication: Chest pain, SOB, HTN, High cholesterol Patient Location: Outpatient Stress Tech: Cynthia Bolanos [place] Tech:Ayla Lindsey, ARRT, RT (R)(N) Ht: 5 ft 2 in Wt: 230 lbs Bra Size: C BP: 144/57 mmHg BSA: 2.03 m2 TID: 1.45 BMI: 42.0 Procedure: Patient received 0.4 mg of intravenous Lexiscan, resting heart rate bpm, resting blood pressure 144/57 mmHg, with Lexiscan maximum heart rate achieved was bpm which is % of the maximum predicted heart rate and blood pressure was 144/57 mmHg. With Lexiscan, patient denied any complaint of chest pain. Chest pain, SOB, HTN, High cholesterol Cardiac Stress and Resting SPECT Images: Cardiac Stress and Resting SPECT images were obtained using technetium 99m Myoview 30.2 mCi stress and 9.68 mCi at rest. The patient could not lie on her abdomen. Therefore, prone stress imaging could not be performed. This may affect the diagnostic interpretation of the study findings. Resting and stress imaging and supine positions demonstrate a medium sized, moderate, fixed perfusion defect in the distal anterior LV wall in the LV apex. There is marked increase in transient ischemic dilatation ratio (TID 1.45), suggestive of possible multivessel disease or balanced ischemia. Gated imaging demonstrates normal global LV systolic function. There is mild hypokinesis of the LV apex. LVEF is calculated at 69%. Conclusion: Medium sized, moderate, fixed perfusion defect in the distal anterior LV wall in the LV apex. There is marked increase in transient ischemic dilatation ratio (TID 1.45), suggestive of possible multivessel disease or balanced ischemia. Gated imaging demonstrates normal global LV systolic function. There is mild hypokinesis of the LV apex. LVEF is calculated at 69%. Electronically signed by : Penny Watkins MD 03/06/2023 05:06:37
--- NOTE | 2023-03-05 07:39 | CA_ITS ---
APPROVED REPORT EXAM: Comprehensive 2D, Doppler, and color-flow Echocardiogram Overhead Door Technician: Luz Elena Campbell RDCS Ht: 5 ft 7 in Wt: 238lbs BSA: 2.18 BP: 126/57 mmHg Indications: CP,AF,CM,OBESITY,TDS M-Mode Dimensions RVDd 1.49 cm (0.9-2.6) LA Diam 3.96 cm (1.9-4.0) LVDd 5.55 cm (3.5-5.7) LVDs 3.59 cm (3.5-5.7) IVSd 0.87 cm (0.6-1.1) PWd 0.62 cm (0.6-1.1) EF (Teich) 64.10% FS 35.30% EDV (Teich) 150.50 mL ESV (Teich) 54.10 mL LV Diastology E Decel Time 297 (160-240 msec) E/A Ratio 0.7 Aortic Valve JUVENCIO Index 0.69 cm2/m2 AoV Peak Thomas. 199.0 (50-130 cm/s) AO Peak GR. 15.90 mmHg AO Mean GR. 7.80 (<5 mmHg) AO VTI 45.6 (18-25 cm) JUVENCIO (VTI) 1.53 (2.5-4.5 cm2) Mitral Valve MV E Max Thomas. 86.0 (40-130 cm/s) MV A Velocity 115.0 (40-130 cm/s) E/A Ratio 0.75 MV PHT 87.0 ms Left Ventricle The left ventricle is normal size. The left ventricular systolic function is normal. The left ventricular ejection fraction is within the normal range. There is increased LV wall thickness. There is normal LV segmental wall motion. The left ventricular diastolic function is normal. LVEF is 55%. Right Ventricle The right ventricle is mildly dilated. The right ventricular systolic function is normal. Atria The left atrium size is normal. The right atrium size is normal. There is no Doppler evidence of interatrial shunt. Aortic Valve The aortic valve is mildly thickened. There is no aortic valvular stenosis. No aortic regurgitation. Mitral Valve The mitral valve is mildly thickened. No evidence of mitral valve stenosis. Trace mitral regurgitation. Tricuspid Valve The tricuspid valve leaflets are thin and pliable. Trace tricuspid regurgitation. RVSP cannot be estimated due to absence of spectral Doppler across the tricuspid valve. Pulmonic Valve The pulmonary valve is normal in structure. Trace pulmonic regurgitation. Great Vessels The aortic root is not well-visualized. IVC is normal in size and collapses >50% with inspiration. Pericardium There is no pericardial effusion. Other Information Study Quality: Technically Difficult Conclusion Technically difficult study due to poor acoustic windows. Normal biventricular systolic function. Mild RV dilation. No significant valvular stenosis or regurgitation. Electronically signed by : Penny Watkins MD 03/06/2023 04:55:56
[2023-03-05] MEDS: REGADENOSON 0.4MG/5ML SYRINGE 0.400000000000000022 MG IV (08:57)
[2023-03-05] MEDS: ISOTOPE MYOVIEW (PER STUDY) 1 DOSE IV (08:57)
[2023-03-05] MEDS: SODIUM CHLORIDE 0.9% 10ML SYR (RAD ONLY) 10 ML IV ×2 (08:57)
--- NOTE | 2023-03-05 10:02 | CA_ITS ---
APPROVED REPORT Exam: Pharmacologic Technologist: Cynthia Stallings, Ht: 5 ft 7 in Wt: 238 lbs BSA: 2.18 m2 BP: 144/57 mmHg Rhythm: V paced rhythm Medical History Medications: Levothyroxine,,,,, Pravastatin,,,,, Ferrous sulfate,,,,, Pantoprazole,,,,, Atorvastatin,,,,, Lasix,,,,, XaRELTO,,,,, Acetaminophen,,,,, BRILINTA,,,,, Multivitamin,,,,, Guaifenesin,,,,, EnTRESTO,,,,, Stress Test Details Test: LEXISCAN Reason for pharmacologic stress test: physical limitation. HR Max Heart Rate (APMHR): 142 bpm Target HR (85% APMHR): 121 bpm BP Resting BP: 144/57 mmHg Max BP: 144/57 mmHg Recovery BP: 138.0/55.0 mmHg ECG Resting ECG: V paced rhythm Stress ECG: No change Arrhythmia: PVCs Clinical Exercise duration: 04:00 min Highest Stage Achieved: Stress ECG Conclusion Symptoms: Dizzy, SOA No CP Arrhythmias/Ectopy: Rare PVC ST-T Changes: V paced rhythm at baseline and after stress Conclusion: Nondiagnostic ECG portion of the stress test due to V paced rhythm Myoview images are reported separately. Test Summary REST 16:12 . . . . 144/ 57 . . Stage 1 01:00 . . . . . . . Stage 2 01:00 . . . . . . . Stage 3 01:00 . . . . 136/ 54 . . Stage 4 01:00 . . . . 138/ 56 . Stop exercise at 04:00 RECOVERY 01:00 . . . . 141/ 58 . . RECOVERY 02:00 . . . . 144/ 60 . . RECOVERY 03:00 . . . . 144/ 60 . . RECOVERY 03:34 . . . . 138/ 55 . . Electronically signed by : Penny Watkins MD 03/06/2023 05:04:28
== END 2023-03-05 23:59 ==
LOC: RAD 07:21
PROVIDERS: PCP Internal Medicine; Visit Provider Internal Medicine
DX: I25.10 Atherosclerotic heart disease of native coronary artery without angina pectoris (principal); I48.0 Paroxysmal atrial fibrillation; R06.02 Shortness of breath; R07.89 Other chest pain; R94.31 Abnormal electrocardiogram [ECG] [EKG]; Z95.5 Presence of coronary angioplasty implant and graft
CPT/HCPCS: 78452; 93017; 93018; 93306; A9502; J2785

== ENCOUNTER 2023-04-19 10:03 | Outpatient (CLI) | payer MEDICARE, MEDICAID, SELFPAY ==
--- NOTE | 2023-04-19 10:08 | US_ITS ---
FINAL REPORT CLINICAL HISTORY: CKD STAGE 4 COMPARISON: None FINDINGS: RENAL ULTRASOUND: The right kidney measures 8.2 cm in length. The left kidney measures 10.1 cm in length. No evidence of hydronephrosis or perinephric fluid collections are seen. There is mild cortical thickening noted in the kidneys bilaterally. IMPRESSION: Mild cortical thinning without evidence of hydronephrosis or perinephric fluid collections. Reviewed, Interpreted and Dictated by Deya Murray MD Transcribed by Esther Travis Authenticated and . [facility]
== END 2023-04-19 23:59 ==
LOC: RAD 10:04
PROVIDERS: PCP Internal Medicine; Visit Provider Internal Medicine Nephrology
DX: N18.4 Chronic kidney disease, stage 4 (severe) (principal); I10 Essential (primary) hypertension
CPT/HCPCS: 76770

== ENCOUNTER 2023-06-01 13:21 | Outpatient (CLI) | payer MEDICARE, MEDICAID, SELFPAY ==
--- NOTE | 2023-06-01 13:21 | MM_ITS ---
PROCEDURE INFORMATION: Exam: MG Bilateral Screening 3D Mammography Exam date and time: 06/01/2023 1:19 PM Age: 77 years old Clinical indication: Screening examination TECHNIQUE: Imaging protocol: Bilateral Screening tomosynthesis and 2D mammography including computer-aided detection (CAD) when performed. Limited shoulder mobility COMPARISON: 1. MG Screening-Bilateral Mammography 01/20/2019 9:20 AM 2. MG Screening-Bilateral Mammography 01/15/2018 2:53 PM FINDINGS: MAMMOGRAPHY: Breast composition: The breasts are almost entirely fatty. Mass: None. Architectural distortion: None. Calcifications: No suspicious calcifications. Asymmetric density: None. Skin thickening: None. Axillary adenopathy: Nonvisualization of the axilla bilaterally due to the patient's inability to fully cooperate with the examination.. IMPRESSION: No mammographic evidence of malignancy. Annual screening is recommended unless otherwise clinically indicated. ASSESSMENT: BI-RADS Category 1: Negative
== END 2023-06-01 23:59 ==
LOC: RAD 13:21
PROVIDERS: PCP Nurse Practitioner Family; Visit Provider Nurse Practitioner Family
DX: Z12.31 Encounter for screening mammogram for malignant neoplasm of breast (principal)
CPT/HCPCS: 77063; 77067

== ENCOUNTER 2023-06-23 22:27 | Emergency (ER) | payer MEDICARE, MEDICAID, SELFPAY ==
[2023-06-23 22:45] VITALS: BP 99/45; PULSE 78; RESP 22; TEMP 37.2; O2SAT 98; BMI 45.6
[2023-06-23 22:51] VITALS: BP 99/42; PULSE 67; RESP 16; TEMP 37.2; O2SAT 98
--- NOTE | 2023-06-23 23:35 | CT_ITS ---
PROCEDURE INFORMATION: Exam: CT Head Without Contrast Exam date and time: 06/24/2023 2:03 AM Age: 77 years old Clinical indication: Injury or trauma; Fall; Blunt trauma (contusions or hematomas); Additional info: Fall on ac TECHNIQUE: Imaging protocol: Computed tomography of the head without contrast. Radiation optimization: All CT scans at this facility use at least one of these dose optimization techniques: automated exposure control; mA and/or kV adjustment per patient size (includes targeted exams where dose is matched to clinical indication); or iterative reconstruction. COMPARISON: 1. CT HEAD/BRAIN WO CON 10/31/2021 9:[address] CERVICAL SPINE WO CON 10/31/2021 9:40 PM FINDINGS: Brain: There is a small right frontal subarachnoid hemorrhage (image 38 series 3). There is hypodensity within the subcortical and periventricular white matter consistent with chronic microvascular disease. Cerebral ventricles: There is mild dilation of the ventricles and sulci compatible with age-related atrophy. Paranasal sinuses: Visualized sinuses are unremarkable. No fluid levels. Mastoid air cells: Visualized mastoid air cells are well aerated. Bones: Unremarkable. No acute fracture. Soft tissues: There is significant soft tissue swelling over the frontal calvarium. IMPRESSION: Small right frontal subarachnoid hemorrhage associated with significant frontal soft tissue swelling.
--- NOTE | 2023-06-23 23:35 | CT_ITS ---
PROCEDURE INFORMATION: Exam: CT Cervical Spine Without Contrast Exam date and time: 06/24/2023 2:05 AM Age: 77 years old Clinical indication: Injury or trauma; Fall; Blunt trauma; Additional info: Fall on ac hyper extension TECHNIQUE: Imaging protocol: Computed tomography of the cervical spine without contrast. Radiation optimization: All CT scans at this facility use at least one of these dose optimization techniques: automated exposure control; mA and/or kV adjustment per patient size (includes targeted exams where dose is matched to clinical indication); or iterative reconstruction. COMPARISON: 1. CT CERVICAL SPINE WO CON 10/31/2021 9:[address] HEAD/BRAIN WO CON 06/24/2023 2:[address] HEAD/BRAIN WO CON 10/31/2021 9:33 PM FINDINGS: Bones: There is diffuse osseous demineralization. There is straightening of the normal spinal curvature. The cervical spine shows relatively preserved alignment of the vertebral bodies with no evidence of acute fractures or dislocations. However, age-related degenerative changes are observed, including mild disc space narrowing and osteophyte formation at multiple levels. These findings are consistent with age related degenerative disease. Lungs: Calcified granuloma at the medial left lung apex. Soft tissues: Unremarkable. IMPRESSION: Multilevel degenerative change without acute injury identified.
--- NOTE | 2023-06-23 23:52 | PC.NURSE ---
md at bedside,rn assist to control bleeding.
--- NOTE | 2023-06-23 23:59 | PC.NURSE ---
Pt cleansed pressure bandage changed and new applied
--- NOTE | 2023-06-24 | ED_ITS ---
Discharge Plan Disposition Patient Disposition: Xfer Short-Term Hosp Condition: Good Prescriptions Prescriptions: No Action multivitamin Tablet 1 tab PO DAILY Entresto 24-26 mg tablet 1 tab PO BID Qty: 60 5RF levothyroxine 88 mcg tablet 88 mcg PO DAILY furosemide [Lasix] 40 mg tablet 40 mg PO BID Qty: 180 2RF spironolactone 25 mg tablet 25 mg PO DAILY Qty: 90 3RF acetaminophen 500 mg capsule 500 mg PO TID PRN (Reason: pain) guaifenesin 100 mg/5 mL liquid 200 mg PO Q4H PRN (Reason: Chest Congestion) amiodarone 200 mg tablet 200 mg PO DAILY pantoprazole 40 mg Tablet,Delayed Release (Dr/Ec) 40 mg PO DAILY Qty: 30 0RF atorvastatin 40 mg tablet 40 mg PO HS metoprolol succinate 50 mg tablet extended release 24 hr 50 mg PO DAILY Rx Instructions: TAKE ONE TABLET BY MOUTH DAILY ferrous sulfate 325 mg (65 mg iron) tablet 325 mg PO QPMWITHMEAL Patient Comments: Take 1 tablet(s) every day at dinner. Brilinta 90 mg tablet 90 mg PO BID Xarelto 15 mg tablet 15 mg PO QPMWITHMEAL Rx Instructions: Take 1 tablet by mouth every evening with meal Referrals Follow up/Referrals: Provider,Referral, MD [Primary Care Provider] - See instructions Clinical Impressions Clinical Impression: Complex laceration of face, Fall, BIANCA (acute kidney injury), Subarachnoid hemorrhage, Acute UTI Discharge ED Provider: Dali Cleaning General Adult HPI <Remberto Dickson MD - Last Filed: 06/24/23 00:35> General Chief complaint: Head Injury Stated complaint: fall Time Seen by Provider: 06/23/23 22:59 Mode of Arrival: EMS Source of Information: Patient Limitations: No Limitations Description of Symptoms (Recalled from ER Triage Doc. by RN): 77 yo female presents with cc of fall from sitting position and hitting head on floor . arrives via EMS and nh report was given from kiran. no known LOC. GCS appears to be baseline. Patient is awake and interactive, able to make needs known. large bandage to forehead area History of Present Illness HPI narrative: Please note that above description of symptoms, in this electronic medical record under categorization of recalled from ER triage doctor by RN are reflective of an initial nursing assessment, however, is not reflective of my full history and physical exam that was personally taken and clarified. Consequentially, this preceding description of symptoms, which may include the patient's categorized chief complaint in the EMR, do not reflect my personal clinical impression, and the ultimate description of history of present illness and patient stated complaints should be deferred to this section of the note. Unless stated otherwise or congruent with this section of the note, additional signs, symptoms, or incongruence should be interpreted as inaccurate with my clinical impression. Related Data Home Medications Medication Instructions Recorded Confirmed multivitamin 1 tab PO DAILY 12/08/21 06/24/23 acetaminophen 500 mg capsule 500 mg PO TID PRN pain 01/23/23 06/24/23 amiodarone 200 mg tablet 200 mg PO DAILY 01/23/23 06/24/23 guaifenesin 100 mg/5 mL oral liquid 200 mg PO Q4H PRN Chest Congestion 01/23/23 06/24/23 levothyroxine 88 mcg tablet 88 mcg PO DAILY 03/27/23 06/24/23 atorvastatin 40 mg tablet 40 mg PO HS 06/24/23 06/24/23 ferrous sulfate 325 mg (65 mg 325 mg PO QPMWITHMEAL iron 06/24/23 06/24/23 iron) tablet supplement metoprolol succinate 50 mg 50 mg PO DAILY 06/24/23 06/24/23 tablet,extended release 24 hr rivaroxaban 15 mg tablet (Xarelto) 15 mg PO QPMWITHMEAL 06/24/23 06/24/23 ticagrelor 90 mg tablet (Brilinta) 90 mg PO BID 06/24/23 06/24/23 Previous Rx's Medication Instructions Recorded pantoprazole 40 mg tablet,delayed 40 mg PO DAILY acid reflux #30 tabs 10/17/21 release sacubitril 24 mg-valsartan 26 mg 1 tab PO BID #60 tabs 12/15/21 tablet (Entresto) furosemide 40 mg tablet (Lasix) 40 mg PO BID #180 tabs 03/27/23 spironolactone 25 mg tablet 25 mg PO DAILY #90 tabs 03/27/23 Allergies Allergy/AdvReac Type Severity Reaction Status Date / Time No Known Allergies Allergy Verified 06/24/23 02:58 [facility] <Remberto Dickson MD - Last Filed: 06/24/23 00:35> [facility] Disclaimer: The information contained in this section may have been updated after the patient was seen, as this information can be updated by other users. Medical History Abnormal findings on diagnostic imaging of heart and coronary circulation Hypocalcemia Hereditary and idiopathic neuropathy, unspecified Chronic pain syndrome Anemia Unspecified rotator cuff tear or rupture of left shoulder, not specified as traumatic SOB (shortness of breath) on exertion BIANCA (acute kidney injury) Hyperlipidemia Hypertension PAF (paroxysmal atrial fibrillation) CAD (coronary atherosclerotic disease) Abnormal electrocardiogram [ECG] [EKG] Adult-onset obesity CRF (chronic renal failure) Contrast dye induced nephropathy LV dysfunction Systolic congestive heart failure Cardiomyopathy Abnormal electrocardiogram [ECG] [EKG] Shortness of Breath Poor historian Surgical History History of coronary artery stent placement History of heart artery stent Abn react-cardiac cath Family History Father Heart attack Diabetes Hypertension Cancer Social History Smoking Status: Unknown if ever smoked alcohol intake: former current occupational status: retired Travel in the last 8 weeks: None household members: caregiver housing: [facility] <Remberto Dickson MD - Last Filed: 06/24/23 00:35> ROS Obtained: Yes All systems reviewed & no additional complaints except as documented Physical Exam <Remberto Dickson MD - Last Filed: 06/24/23 00:35> General General appearance: alert and in no apparent distress Head Head exam: normocephalic and other (2 cm laceration on forehead with arterial bleed. 0.5 cm laceration bridge of nose) Eye Eye exam: Present normal appearance, PERRL and EOMI ENT ENT exam: Present mucous membranes moist Neck Neck exam: Present normal inspection, full ROM, trachea midline and other (Cervical stabilizing towel in place) Respiratory Respiratory exam: Absent respiratory distress, wheezes, stridor, accessory muscle use or prolonged expiratory phase Cardiovascular Cardiovascular exam: Present normal rhythm Abdominal Exam Abdominal exam: Present soft; Absent distention, tenderness, guarding, rebound or rigidity Extremities Exam Extremities exam: Absent edema Neurological Exam Neurological exam: Present alert, oriented X3, CN II-XII intact and normal gait; Absent motor sensory deficit Skin Skin exam: Present warm and dry; Absent diaphoresis or erythema Medical Decision Making <Remberto Dickson MD - Last Filed: 06/24/23 00:35> Medical Records Medical records reviewed: Yes I reviewed the patient's medical records. Trevor Inquiry Pt receiving controlled substance: No Trevor was queried for this patient: No Vital Signs: 06/23/23 22:45 Temperature 98.9 F Temperature Source Oral Pulse Rate [Right Brachial] 78 Respiratory Rate 22 Blood Pressure [Right Arm] 99/45 L Blood Pressure Mean [Right Arm] 63 Blood Pressure Source [Right Arm] Automatic Cuff Blood Pressure Position [Right Arm] Sitting 02 Sat by Pulse Oximetry 98 Oxygen Delivery Method Room Air Lab Data Lab Results 06/23/23 00:00: PT 13.7 H, INR 1.29 H, APTT 37.5 H 06/23/23 22:30: WBC 5.2, RBC 3.30 L, Hgb 10.2 L, Hct 31.8 L, MCV 96.4, MCH 30.8, MCHC 32.0, RDW 16.0, Plt Count 348, MPV 8.4, Neut % (Auto) 61.8, Lymph % (Auto) 29.8, Campbell % (Auto) 6.8, Eos % (Auto) 0.8, Baso % (Auto) 0.8, Neut # (Auto) 3.2, Lymph # (Auto) 1.6, Campbell # (Auto) 0.4, Eos # (Auto) 0.0, Baso # (Auto) 0.0, Sodium 136, Potassium 3.8, Chloride 98, Carbon Dioxide 30, Anion Gap 11.8, BUN 60 H, Creatinine 3.70 H, Estimated Creat Clear 13, Estimated GFR 12 L*, Est GFR ( Amer) 14 L*, Glucose 131 H, Calcium 8.6, Total Bilirubin 0.5, AST 81 H, ALT 78, Alkaline Phosphatase 151 H, Total Protein 6.4, Albumin 3.5, Globulin 2.9, Albumin/Globulin Ratio 1.2 06/24/23 01:39: Urine Color Yellow, Urine Appearance Clear, Urine pH 5.5, Ur Specific [place] 1.010, Urine Protein Negative, Urine Glucose (UA) Negative, Urine Ketones Negative, Urine Blood 1+, Urine Nitrate Negative, Urine Bilirubin Negative, Urine Urobilinogen 0.2, Ur Leukocyte Esterase 1+ A, Urine RBC None, Urine WBC Occasional, Ur Squamous Epith Cells Occasional, Urine Bacteria 1+ 06/23/23 22:30 06/23/23 22:30 Orders (Tests/Meds): ED MEDICATIONS Generic Name Dose Route Start Last Admin Trade Name Freq PRN Reason Stop Dose Admin Ceftriaxone Sodium 2 gm/ 100 mls @ 200 mls/hr 06/24/23 02:45 06/24/23 02:54 Sodium Chloride IV 07/04/23 02:44 200 mls/hr Q24H ARPITA Administration Sodium Chloride 1,000 mls @ 999 mls/hr 06/24/23 02:39 06/24/23 02:46 Sod Chlor 0.9% 1000ml Bag IV 06/24/23 03:39 999 mls/hr .Q1H1M ONE Administration Sodium Chloride 10 ml 06/24/23 02:17 06/24/23 02:19 Sodium Chloride 0.9% 10ml Syr (Rad Only) IV 07/24/23 02:16 10 ml NEEDED PRN Administration Maintain IV Site Discontinued Medications Generic Name Dose Route Start Last Admin Trade Name Freq PRN Reason Stop Dose Admin Lactated Ringer's 1,000 mls @ 999 mls/hr 06/24/23 01:22 06/24/23 01:25 Lactated Ringer's 1000 Ml Bag IV 06/24/23 02:22 999 mls/hr .Q1H1M ONE Administration Iopamidol 100 ml 06/24/23 02:17 06/24/23 02:18 Iopamidol-370 (76%);100ml Bottle IV 06/24/23 02:18 100 ml ONCE ONE Administration Sodium Chloride 50 ml 06/24/23 02:17 06/24/23 02:18 0.9 % Sodium Chloride 50 Ml Vial IV 06/24/23 02:18 50 ml ONCE ONE Administration ORDERS Category Date Time Status CT angio head Stat Cat Scan 06/24/23 00:[address] cervical spine wo con Stat Cat Scan 06/23/23 23:[address] head/brain wo con Stat Cat Scan 06/23/23 23:35 Completed Activated Partial Thrombo Time Stat Lab 06/24/23 01:09 Completed Complete Blood Count Auto Diff Stat Lab 06/24/23 00:00 Completed Comprehensive Metabolic Panel Stat Lab 06/24/23 00:00 Completed Prothrombin Time INR Stat Lab 06/24/23 01:09 Completed Urinalysis and Microscopic Stat Lab 06/24/23 01:39 Completed Urine Culture Stat Micro 06/24/23 01:39 Received Medical Decision Narrative: 77-year-old female history of hypertension, hyperlipidemia, CAD, A-fib on Xarelto presenting with laceration after fall. Patient was transferring into her wheelchair when she fell, hit her forehead on the door frame, then on the wheelchair foot piece. Does not think she lost consciousness, but unsure. Having significant pain in her face. EMS was called. On arrival, patient had mild to moderate amount of blood on a towel that she was holding against her head. Patient denies lightheadedness, shortness of breath, nausea or vomiting, neck pain, back pain, vision changes, or any other concerns. On arrival, patient hemodynamically stable, neurologically intact, pupils are equal and symmetric, patient has 2 cm laceration on forehead with 2 arterial bleeding vessels. She also has subcentimeter laceration on the bridge of her nose with venous ooze. Cervical spine is secured with towel roll. No chest, neck, abdominal, shoulder, hip, or any other tenderness. Patient was given laceration repair and arterial ties for symptomatic management and correction of underlying abnormalities. Numerous trauma alert came in just after patient arrived in the emergency department and I finished closing her lacerations. Patient's CT scans were pending at time of handoff to oncoming physician. <Dali Cleaning, DO - Last Filed: 06/24/23 03:01> Vital Signs: 06/23/23 22:45 Temperature 98.9 F Temperature Source Oral Pulse Rate [Right Brachial] 78 Respiratory Rate 22 Blood Pressure [Right Arm] 99/45 L Blood Pressure Mean [Right Arm] 63 Blood Pressure Source [Right Arm] Automatic Cuff Blood Pressure Position [Right Arm] Sitting 02 Sat by Pulse Oximetry 98 Oxygen Delivery Method Room Air Lab Data Lab Results 06/23/23 00:00: PT 13.7 H, INR 1.29 H, APTT 37.5 H 06/23/23 22:30: WBC 5.2, RBC 3.30 L, Hgb 10.2 L, Hct 31.8 L, MCV 96.4, MCH 30.8, MCHC 32.0, RDW 16.0, Plt Count 348, MPV 8.4, Neut % (Auto) 61.8, Lymph % (Auto) 29.8, Campbell % (Auto) 6.8, Eos % (Auto) 0.8, Baso % (Auto) 0.8, Neut # (Auto) 3.2, Lymph # (Auto) 1.6, Campbell # (Auto) 0.4, Eos # (Auto) 0.0, Baso # (Auto) 0.0, Sodium 136, Potassium 3.8, Chloride 98, Carbon Dioxide 30, Anion Gap 11.8, BUN 60 H, Creatinine 3.70 H, Estimated Creat Clear 13, Estimated GFR 12 L*, Est GFR ( Amer) 14 L*, Glucose 131 H, Calcium 8.6, Total Bilirubin 0.5, AST 81 H, ALT 78, Alkaline Phosphatase 151 H, Total Protein 6.4, Albumin 3.5, Globulin 2.9, Albumin/Globulin Ratio 1.2 06/24/23 01:39: Urine Color Yellow, Urine Appearance Clear, Urine pH 5.5, Ur Specific [place] 1.010, Urine Protein Negative, Urine Glucose (UA) Negative, Urine Ketones Negative, Urine Blood 1+, Urine Nitrate Negative, Urine Bilirubin Negative, Urine Urobilinogen 0.2, Ur Leukocyte Esterase 1+ A, Urine RBC None, Urine WBC Occasional, Ur Squamous Epith Cells Occasional, Urine Bacteria 1+ Orders (Tests/Meds): ED MEDICATIONS Generic Name Dose Route Start Last Admin Trade Name Freq PRN Reason Stop Dose Admin Ceftriaxone Sodium 2 gm/ 100 mls @ 200 mls/hr 06/24/23 02:45 06/24/23 02:54 Sodium Chloride IV 07/04/23 02:44 200 mls/hr Q24H ARPITA Administration Sodium Chloride 1,000 mls @ 999 mls/hr 06/24/23 02:39 06/24/23 02:46 Sod Chlor 0.9% 1000ml Bag IV 06/24/23 03:39 999 mls/hr .Q1H1M ONE Administration Sodium Chloride 10 ml 06/24/23 02:17 06/24/23 02:19 Sodium Chloride 0.9% 10ml Syr (Rad Only) IV 07/24/23 02:16 10 ml NEEDED PRN Administration Maintain IV Site Discontinued Medications Generic Name Dose Route Start Last Admin Trade Name Andrea PRN Reason Stop Dose Admin Lactated Ringer's 1,000 mls @ 999 mls/hr 06/24/23 01:22 06/24/23 01:25 Lactated Ringer's 1000 Ml Bag IV 06/24/23 02:22 999 mls/hr .Q1H1M ONE Administration Iopamidol 100 ml 06/24/23 02:17 06/24/23 02:18 Iopamidol-370 (76%);100ml Bottle IV 06/24/23 02:18 100 ml ONCE ONE Administration Sodium Chloride 50 ml 06/24/23 02:17 06/24/23 02:18 0.9 % Sodium Chloride 50 Ml Vial IV 06/24/23 02:18 50 ml ONCE ONE Administration ORDERS Category Date Time Status CT angio head Stat Cat Scan 06/24/23 00:[address] cervical spine wo con Stat Cat Scan 06/23/23 23:[address] head/brain wo con Stat Cat Scan 06/23/23 23:35 Completed Activated Partial Thrombo Time Stat Lab 06/24/23 01:09 Completed Complete Blood Count Auto Diff Stat Lab 06/24/23 00:00 Completed Comprehensive Metabolic Panel Stat Lab 06/24/23 00:00 Completed Prothrombin Time INR Stat Lab 06/24/23 01:09 Completed Urinalysis and Microscopic Stat Lab 06/24/23 01:39 Completed Urine Culture Stat Micro 06/24/23 01:39 Received Medical Decision Narrative: 77-year-old female history of hypertension, hyperlipidemia, CAD, A-fib on Xarelto presenting with laceration after fall. Patient was transferring into her wheelchair when she fell, hit her forehead on the door frame, then on the wheelchair foot piece. Does not think she lost consciousness, but unsure. Having significant pain in her face. EMS was called. On arrival, patient had mild to moderate amount of blood on a towel that she was holding against her head. Patient denies lightheadedness, shortness of breath, nausea or vomiting, neck pain, back pain, vision changes, or any other concerns. On arrival, patient hemodynamically stable, neurologically intact, pupils are equal and symmetric, patient has 2 cm laceration on forehead with 2 arterial bleeding vessels. She also has subcentimeter laceration on the bridge of her nose with venous ooze. Cervical spine is secured with towel roll. No chest, neck, abdominal, shoulder, hip, or any other tenderness. Patient was given laceration repair and arterial ties for symptomatic management and correction of underlying abnormalities. Numerous trauma alert came in just after patient arrived in the emergency department and I finished closing her lacerations. Patient's CT scans were pending at time of handoff to oncoming physician. DO Black: I assumed care of the patient at 2300 after departure of other physician. Patient waited a while for CT scans given that multiple trauma alert arrived in the emergency department at the same time. After CT scans were obtained, I had an interactive discussion with the radiologist who noted that the patient had a small subarachnoid hemorrhage with associated edema. She also has a large forehead hematoma without active contrast extravasation that is visible. Patient is on Xarelto and Brilinta on medical record review. On reassessment, the patient is alert and conversational. She is oriented to place, but not time. I called and notified her daughter, Lorrie, of findings and discussed that I would like to proceed with transferring the patient to higher level of care for neurology/neurosurgical evaluation given her head bleed. Daughter stated that this is fine and she would like for the patient to be sent to wherever she needs to go to receive appropriate care. Given this, images were power shared to [facility] and I called to initiate discussions with neurosurgery. I considered urgently administering reversal of anticoagulation, however given that the bleed is very small will defer to neurosurgical consultation. Patient also has findings concerning for urinary tract infection as well as BIANCA. She had soft pressures while here in the emergency department, so I did give her 2 L bolus of IV fluids. Ultimately I had an interactive discussion with Dr. Cesar at who advised transfer to [facility] as a trauma alert. Flight was arranged given acuity of the patient's condition, and she was transported in stable condition. Procedures <Remberto Dickson MD - Last Filed: 06/24/23 00:35> Laceration Laceration 1: Site: face Size (cm): 2 Description: linear Depth: simple, single layer and involves subcutaneous layer Local Anesthetic: lidocaine 1% and with epi Amount of anesthesia used (mL): 8 Pre-repair: wound explored and wound margins revised (In order to reach arterial bleeding vessel. Figure of eights around arterial vessel with 3.0 Vicryl) Skin layer closed with: vicryl Size (cm): 3-0 Number of sutures: 5 Technique: simple, interrupted Laceration 2: Site: face Size (cm): 0.5 Description: linear Depth: simple, single layer Local Anesthetic: lidocaine 1% and with epi Amount of anesthesia used (mL): 2 Skin layer closed with: nylon Size (cm): 3-0 Number of sutures: 1 Technique: simple, interrupted Critical Care <Remberto Dickson MD - Last Filed: 06/24/23 00:35> Critical Care Time Critical Care Time: Yes (CV, stabilizing arterial bleed) Attestation: On 06/23/23, the high probability of a clinically significant, sudden or life threatening deterioration of the following system(s) required my full and direct attention, intervention and personal management. The time I documented below is in addition to time spent performing reported procedures but includes the following listed in this critical care notation. Total Time Total Critical Care Time: 25
[2023-06-24 00:05] VITALS: BP 99/50; PULSE 64; RESP 16; O2SAT 98
--- NOTE | 2023-06-24 00:39 | PC.NURSE ---
contacted nola in rad to update that we were adding an angio ct head to patient's list of needs.
--- NOTE | 2023-06-24 00:58 | CT_ITS ---
PROCEDURE INFORMATION: Exam: CTA Head With Contrast, Arteriography Exam date and time: 06/24/2023 2:10 AM Age: 77 years old Clinical indication: Injury or trauma; Fall; Blunt trauma; Head; Additional info: Fall with bleeding TECHNIQUE: Imaging protocol: Computed tomographic angiography of the head with contrast. Exam focused on the arteries. 3D rendering (Not supervised by radiologist): MIP and/or 3D reconstructed images were created by the technologist. Radiation optimization: All CT scans at this facility use at least one of these dose optimization techniques: automated exposure control; mA and/or kV adjustment per patient size (includes targeted exams where dose is matched to clinical indication); or iterative reconstruction. Contrast material: ISOVUE 370; Contrast volume: 100 ml; Contrast route: INTRAVENOUS (IV); COMPARISON: 1. CT HEAD/BRAIN WO CON 06/24/2023 2:[address] HEAD/BRAIN WO CON 10/31/2021 9:[address] CERVICAL SPINE WO CON 06/24/2023 2:05 AM FINDINGS: ANTERIOR CIRCULATION: Right internal carotid artery: Intracranial segment is patent with no significant stenosis. No aneurysm. Right middle cerebral artery: No occlusion or significant stenosis. No aneurysm. Right anterior cerebral artery: No occlusion or significant stenosis. No aneurysm. Left internal carotid artery: Intracranial segment is patent with no significant stenosis. No aneurysm. Left middle cerebral artery: No occlusion or significant stenosis. No aneurysm. Left anterior cerebral artery: No occlusion or significant stenosis. No aneurysm. POSTERIOR CIRCULATION: Right vertebral artery: No occlusion or significant stenosis. No aneurysm. Left vertebral artery: No occlusion or significant stenosis. No aneurysm. Basilar artery: No occlusion or significant stenosis. No aneurysm. Right posterior cerebral artery: No occlusion or significant stenosis. No aneurysm. Left posterior cerebral artery: No occlusion or significant stenosis. No aneurysm. Brain: There is a small right frontal subarachnoid hemorrhage (image 38 series 3). Cerebral ventricles: No ventriculomegaly. Bones/joints: There is significant soft tissue swelling over the frontal calvarium with locules of air consistent with laceration. Soft tissues: See Bones/joints finding. IMPRESSION: 1. Small right frontal subarachnoid hemorrhage. 2. No acute intracranial vascular anomaly.
[2023-06-24 01:00] VITALS: BP 98/48; PULSE 66; RESP 14; O2SAT 97
[2023-06-24 01:05] LABS: Basophils % 0.8 % (0.1-2.0); Eosinophils % 0.8 % (0.1-12.0); Hematocrit 31.8 % (37.0-47.0); Hemoglobin 10.2 g/dL (12.2-16.2); Lymphocytes # 1.6 K/mm3 (0.7-4.5); Lymphocytes % 29.8 % (10-50); Mean Corpuscular Hemoglobin 30.8 pg (27.0-31.2); Mean Corpuscular Volume 96.4 fl (81-99); Mean Platelet Volume 8.4 fl (7.4-10.4); Monocytes # 0.4 K/mm3 (0.1-1.0); Monocytes % 6.8 % (1.7-9.3); Neutrophils # 3.2 K/mm3 (1.8-7.8); Neutrophils % 61.8 % (37.0-80.0); Platelet Count 348 K/mm3 (142-424); White Blood Count 5.2 K/mm3 (4.8-10.8)
[2023-06-24 01:06] LABS: Chloride 98 mmol/L (98-107); Potassium 3.8 mmoL/L (3.5-5.1); Sodium 136 mmol/L (136-145)
[2023-06-24 01:08] LABS: Alanine Aminotransferase 78 U/L (12-78); Alkaline Phosphatase 151 U/L (38-126); Aspartate Amino Transferase 81 U/L (14-36); Bilirubin,Total 0.5 mg/dl (0.2-1.3); Blood Urea Nitrogen 60 mg/dl (7-17); Creatinine Clearance Estimated 13 mL/min (50-200); Estimated Glomerular Filt Rate 12 ml/min (>60); GFR (African American) 14 ML/MIN (>60)
[2023-06-24 01:09] LABS: Albumin Level 3.5 g/dl (3.5-5.0); Albumin/Globulin Ratio 1.2 (1.1-1.8); Anion Gap 11.8 mEq/L (5-15); Calcium 8.6 mg/dl (8.4-10.2); Carbon Dioxide 30 mmol/L (22.0-30.0); Globulin 2.9 g/dL (1.3-3.2); Glucose 131 mg/dl (74-100); Total Protein,Serum 6.4 g/dl (6.3-8.2)
[2023-06-24 01:21] LABS: Activated Partial Thrombo Time 37.5 seconds (22.8-30.6); INR 1.29 (0.9-1.1); Prothrombin Time 13.7 seconds (10.1-12.5)
[2023-06-24] MEDS: LACTATED RINGERS 1000ML 1,000 ML 999 ML IV (01:25)
[2023-06-24 01:40] LABS: Microscopic, Urine URINE MICROSCOPIC (MICROSCOPIC)
--- NOTE | 2023-06-24 01:41 | PC.NURSE ---
Pt placed on pure wick, brief and linens changed
[2023-06-24 01:45] LABS: Appearance,Urine CLEAR (Clear); Bilirubin,Urine Negative (Negative); Blood, Urine 1+ (Negative); Color,Urine YELLOW (Yellow); Glucose,Urine (UA) Negative (Negative); Ketones,Urine Negative (Negative); Leukocyte Esterase,Urine 1+ (Negative); Nitrate,Urine Negative (Negative); PH,Urine 5.5 (5.0-8.5); Protein,Urine Negative (Negative); Urobilinogen,Urine 0.2 EU/dl (0.2)
[2023-06-24 01:56] LABS: Bacteria,Urine 1+ /lpf; Squamous Epithelial Cell,Urine Occasional #/hpf (0-5); WBC,Urine Occasional #/hpf (0-3)
--- NOTE | 2023-06-24 02:02 | PC.NURSE ---
Pt taken to CT
[2023-06-24] MEDS: IOPAMIDOL-370 (76%);100ML BOTTLE 100 ML IV (02:18)
[2023-06-24] MEDS: 0.9 % SODIUM CHLORIDE 50 ML VIAL IV (02:18)
[2023-06-24] MEDS: SODIUM CHLORIDE 0.9% 10ML SYR (RAD ONLY) 10 ML IV (02:19)
--- NOTE | 2023-06-24 02:35 | PC.NURSE ---
Called [facility] per Dr Cleaning for a transfer of the pt to . Waiting for a callback. CR
--- NOTE | 2023-06-24 02:40 | PC.NURSE ---
vrad contacted re: reading at this time.
[2023-06-24] MEDS: 0.9 % SODIUM CHLORIDE 1000ML 1,000 ML 999 ML IV (02:46)
--- NOTE | 2023-06-24 02:52 | PC.NURSE ---
Dr Cleaning contacted pt [facility] to transfer pt to higher level of care
[2023-06-24] MEDS: CEFTRIAXONE SODIUM 2 GM in 0.9 % SODIUM CHLORIDE 100 ML IV (02:54)
[2023-06-24 03:00] VITALS: BP 99/45; PULSE 68; RESP 16; TEMP 37.2; O2SAT 97
--- NOTE | 2023-06-24 03:04 | PC.NURSE ---
call placed to [facility] for transport
--- NOTE | 2023-06-24 03:12 | PC.NURSE ---
[facility] declined d/t weather
--- NOTE | 2023-06-24 03:15 | PC.NURSE ---
call placed to [facility], waiting on cb
--- NOTE | 2023-06-24 03:26 | PC.NURSE ---
pt accepted by [facility] at this time
[2023-06-24 04:05] VITALS: BP 92/42; PULSE 64; RESP 15; TEMP 36.5; O2SAT 96
--- NOTE | 2023-06-28 01:10 | PC.NURSE ---
Pt transferred to . Urine culture report to [facility] ICU @ [phone]
== END 2023-06-24 04:08 | disposition short-term general hospital (02) ==
PROVIDERS: Emergency Medicine; Emergency Provider Emergency Medicine
DX: S06.6X0A Traumatic subarachnoid hemorrhage without loss of consciousness, initial encounter (principal); S01.81XA Laceration without foreign body of other part of head, initial encounter; N39.0 Urinary tract infection, site not specified; B96.29 Other Escherichia coli [E. coli] as the cause of diseases classified elsewhere; N17.8 Other acute kidney failure; W07.XXXA Fall from chair, initial encounter; I48.0 Paroxysmal atrial fibrillation; E78.5 Hyperlipidemia, unspecified; I11.9 Hypertensive heart disease without heart failure; I25.10 Atherosclerotic heart disease of native coronary artery without angina pectoris; Z79.01 Long term (current) use of anticoagulants
CPT/HCPCS: 70450; 70496; 72125; 80053; 81001; 85025; 85610; 85730; 87086; 96361; 96365; 99291; J0696; Q9967

== ENCOUNTER 2023-07-02 15:31 | Outpatient (POV) | payer MEDICARE, MEDICAID, SELFPAY | END 2023-07-02 23:59 | disposition home or self-care (01) | LOC: SC 15:32 | PROVIDERS: Visit Provider Internal Medicine Nephrology | DX: Z00.00 Encounter for general adult medical examination without abnormal findings (principal) ==

== ENCOUNTER 2023-07-10 11:24 | Outpatient (CLI) | payer MEDICARE, MEDICAID, SELFPAY ==
[2023-07-10 11:45] LABS: Basophils # 0.1 K/mm3 (0-0.2); Eosinophils # 0.1 K/mm3 (0.0-0.4); Eosinophils % 1.8 % (0.1-12.0); Hematocrit 31.5 % (37.0-47.0); Hemoglobin 9.6 g/dL (12.2-16.2); Lymphocytes # 0.8 K/mm3 (0.7-4.5); Lymphocytes % 15.4 % (10-50); Mean Corpuscular HGB Conc 30.4 g/dL (31.8-35.4); Mean Corpuscular Hemoglobin 29.6 pg (27.0-31.2); Mean Corpuscular Volume 97.5 fl (81-99); Mean Platelet Volume 7.4 fl (7.4-10.4); Monocytes # 0.3 K/mm3 (0.1-1.0); Monocytes % 5.5 % (1.7-9.3); Neutrophils # 4.1 K/mm3 (1.8-7.8); Neutrophils % 76.3 % (37.0-80.0); Platelet Count 416 K/mm3 (142-424); Red Blood Count 3.23 M/mm3 (4.20-5.40); Red Cell Distribution Width 19.8 % (11.5-17.5); White Blood Count 5.4 K/mm3 (4.8-10.8)
[2023-07-10 13:18] LABS: Blood Urea Nitrogen 37 mg/dl (7-17); Calcium 9.4 mg/dl (8.4-10.2); Carbon Dioxide 30 mmol/L (22.0-30.0); Chloride 100 mmol/L (98-107); Estimated Glomerular Filt Rate 19 ml/min (>60); GFR (African American) 23 ML/MIN (>60); Glucose 104 mg/dl (74-100); Sodium 142 mmol/L (136-145)
== END 2023-07-10 23:59 | disposition home or self-care (01) ==
LOC: LAB 11:25
PROVIDERS: PCP Nurse Practitioner Family; Visit Provider Nurse Practitioner
DX: I25.10 Atherosclerotic heart disease of native coronary artery without angina pectoris (principal); R94.31 Abnormal electrocardiogram [ECG] [EKG]; I48.0 Paroxysmal atrial fibrillation; R06.02 Shortness of breath; R07.89 Other chest pain; I60.9 Nontraumatic subarachnoid hemorrhage, unspecified; Z95.5 Presence of coronary angioplasty implant and graft; N17.9 Acute kidney failure, unspecified; W19.XXXA Unspecified fall, initial encounter
CPT/HCPCS: 36415; 80048; 85025

== ENCOUNTER 2023-07-13 15:30 | Emergency (ER) | payer MEDICARE, MEDICAID, SELFPAY ==
[2023-07-13] VITALS (45 sets, daily range): BP systolic 96–135; BP diastolic 30–63; PULSE 59–71; RESP 13–28; TEMP 36.3–36.6; O2SAT 90–95; BMI 39.4
--- NOTE | 2023-07-13 15:32 | PC.NURSE ---
DR ESPINOSA AT BEDSIDE
--- NOTE | 2023-07-13 15:33 | CT_ITS ---
PROCEDURE INFORMATION: Exam: CTA Abdomen and Pelvis With Contrast Exam date and time: 07/13/2023 4:53 PM Age: 77 years old Clinical indication: Abdominal pain; Generalized; Additional info: Severe generalized abd pain TECHNIQUE: Imaging protocol: Computed tomographic angiography of the abdomen and pelvis with contrast. Exam focused on the arteries. 3D rendering (Not supervised by radiologist): MIP and/or 3D reconstructed images were created by the technologist. Radiation optimization: All CT scans at this facility use at least one of these dose optimization techniques: automated exposure control; mA and/or kV adjustment per patient size (includes targeted exams where dose is matched to clinical indication); or iterative reconstruction. Contrast material: ISOVUE 370; Contrast volume: 75 ml; Contrast route: INTRAVENOUS (IV); COMPARISON: CT ABDOMEN PELVIS WO CON 11/01/2021 12:28 AM FINDINGS: Aorta: No aortic aneurysm. No aortic dissection. Celiac trunk and mesenteric arteries: No occlusion or significant stenosis. Renal arteries: No occlusion or significant stenosis. Right iliac arteries: No occlusion or significant stenosis. Left iliac arteries: No occlusion or significant stenosis. Liver: Small amounts of air are noted in the left lobe of the liver including the medial segment adjacent to the fissure for falciform ligament on axial images 109 , 111 and 113 and in the lateral aspect of the lateral segment left lobe of liver centered on axial image 97 . Liver otherwise unremarkable. Gallbladder and bile ducts: Gallbladder somewhat degraded by severe motion artifact and cannot be assessed. Dilated extrahepatic CBD measuring up to 13 mm thought to extend to the ampulla. Associated intrahepatic bile duct dilatation may also be present. Pancreas: Unremarkable. No mass. No ductal dilation. Spleen: Unremarkable. No splenomegaly. Adrenal glands: Unremarkable. No mass. Kidneys and ureters: Unremarkable. No solid mass. No hydronephrosis. Stomach and bowel: Occasional diverticula of the descending and sigmoid colon. GI tract structures otherwise unremarkable with no evident wall thickening allowing for incomplete distention. No evident pneumatosis. Appendix: Appendix is normal. No evidence of appendicitis. Intraperitoneal space: Unremarkable. No free air. No significant fluid collection. Lymph nodes: Unremarkable. No enlarged lymph nodes. Urinary bladder: Mild developing bladder diverticulum off of the posterior right side of the bladder incidentally noted. Reproductive: Unremarkable as visualized. Bones/joints: No acute fracture. Soft tissues: Unremarkable. IMPRESSION: 1. Mild intrahepatic air in the left lobe of the liver. Favor portal venous air of uncertain origin as no obvious pneumatosis. Pneumobilia should also be considered if any history of instrumentation of the ampulla. 2. Dilated extrahepatic and intrahepatic bile ducts suggesting the possibility of developing obstructing process at the ampulla. Consider further assessment with ultrasound and/or MRCP. 3. No evidence of aneurysm or dissection. 4. Additional nonemergent findings as above.
[2023-07-13] MEDS: ONDANSETRON 4MG/2ML VIAL 4 MG IV (15:39)
[2023-07-13] MEDS: MORPHINE 4MG/ML SYRINGE 4 MG IV (15:39)
[2023-07-13 15:42] LABS: Basophils % 0.9 % (0.1-2.0); Eosinophils # 0.1 K/mm3 (0.0-0.4); Eosinophils % 2.1 % (0.1-12.0); Hemoglobin 8.9 g/dL (12.2-16.2); Lymphocytes # 1.2 K/mm3 (0.7-4.5); Lymphocytes % 27.4 % (10-50); Mean Corpuscular HGB Conc 30.8 g/dL (31.8-35.4); Mean Corpuscular Hemoglobin 30.3 pg (27.0-31.2); Mean Corpuscular Volume 98.3 fl (81-99); Mean Platelet Volume 8.1 fl (7.4-10.4); Monocytes # 0.3 K/mm3 (0.1-1.0); Monocytes % 7.5 % (1.7-9.3); Neutrophils # 2.8 K/mm3 (1.8-7.8); Neutrophils % 62.2 % (37.0-80.0); Platelet Count 303 K/mm3 (142-424); Red Blood Count 2.95 M/mm3 (4.20-5.40); White Blood Count 4.5 K/mm3 (4.8-10.8)
[2023-07-13 15:49] LABS: Chloride 104 mmol/L (98-107); Potassium 4.8 mmoL/L (3.5-5.1); Sodium 139 mmol/L (136-145)
[2023-07-13 15:51] LABS: Alanine Aminotransferase 39 U/L (12-78); Aspartate Amino Transferase 87 U/L (14-36); Blood Urea Nitrogen 40 mg/dl (7-17); Creatinine Clearance Estimated 28 mL/min (50-200); Estimated Glomerular Filt Rate 17 ml/min (>60); GFR (African American) 21 ML/MIN (>60)
[2023-07-13 15:52] LABS: Albumin Level 3.6 g/dl (3.5-5.0); Albumin/Globulin Ratio 1.2 (1.1-1.8); Alkaline Phosphatase 157 U/L (38-126); Anion Gap 12.8 mEq/L (5-15); Bilirubin,Total 0.6 mg/dl (0.2-1.3); Calcium 8.4 mg/dl (8.4-10.2); Carbon Dioxide 27 mmol/L (22.0-30.0); Glucose 122 mg/dl (74-100); Lipase 91 U/L (23-300); Total Protein,Serum 6.6 g/dl (6.3-8.2)
[2023-07-13 15:54] LABS: Lactic Acid 1.7 mmol/L (0.7-2.1)
[2023-07-13 16:04] LABS: Troponin I < 0.01 ng/ml (0.00-0.034)
[2023-07-13] MEDS: LACTATED RINGERS 1000ML 1,000 ML 999 ML IV (16:13)
--- NOTE | 2023-07-13 16:13 | ED_ITS ---
Discharge Plan Disposition Patient Disposition: Xfer Short-Term Hosp Prescriptions Prescriptions: No Action multivitamin Tablet 1 tab PO DAILY Entresto 24-26 mg tablet 1 tab PO BID Qty: 60 5RF levothyroxine 88 mcg tablet 88 mcg PO DAILY spironolactone 25 mg tablet 25 mg PO DAILY Qty: 90 3RF ondansetron HCl 4 mg tablet 4 mg PO Q8HP PRN (Reason: Nausea And Vomiting) sennosides-docusate sodium [Senexon-S] 8.6-50 mg tablet 1 tab-cap PO BID cyanocobalamin (vitamin B-12) 1,000 mcg tablet 1,000 mcg PO DAILY polyethylene glycol 3350 17 gram/dose powder 17 g PO DAILY Deep Sea Nasal 0.65 % aerosol,spray 3 spray intranasal TID metoprolol tartrate 25 mg tablet 12.5 mg PO BID acetaminophen 500 mg capsule 500 mg PO TID PRN (Reason: pain) amiodarone 200 mg tablet 200 mg PO DAILY furosemide [Lasix] 40 mg tablet 40 mg PO DAILY Qty: 30 4RF pantoprazole 40 mg Tablet,Delayed Release (Dr/Ec) 40 mg PO DAILY Qty: 30 0RF atorvastatin 40 mg tablet 40 mg PO HS ferrous sulfate 325 mg (65 mg iron) tablet 325 mg PO QPMWITHMEAL Patient Comments: Take 1 tablet(s) every day at dinner. Referrals Follow up/Referrals: Cece Garces APRN [Primary Care Provider] - See instructions Clinical Impressions Clinical Impression: Abdominal pain, Pneumobilia, Common bile duct dilation, Acute UTI Instructions Patient Instructions: DI for Acute Abdominal Pain Discharge ED Provider: Dali Cleaning General Adult HPI General Chief complaint: Abdominal Pain Stated complaint: ABD pain Time Seen by Provider: 07/13/23 15:33 Mode of Arrival: EMS Source of Information: Patient Limitations: No Limitations Description of Symptoms (Recalled from ER Triage Doc. by RN): pt presents to ED via [facility] for abdominal pain and pain between shoulder blades. pt does live at [facility]. pt reports she was on her way to play bingo and a sharp pain happened in her abdomen. History of Present Illness HPI narrative: This patient is a 77-year-old female with a history of hypertension, hyperlipidemia, CAD, paroxysmal atrial fibrillation, CKD, and previous evaluation here at the beginning of June for fall with subarachnoid hemorrhage presenting with concern for belly pain. Patient presents from [facility]. Patient reports that she was on her way to playing bingo when she started experiencing sharp generalized abdominal pain that she is not able to localize. No fevers, nausea, vomiting, changes bowel movements, or other concerns noted. The pain is severe and constant, and the patient is actively screaming out in pain. EMS arrived with the patient who noted that they were told the pain radiates between her shoulder blades. They did an EKG review that did not demonstrate STEMI. Patient was hemodynamically stable en route. Related Data Home Medications Medication Instructions Recorded Confirmed multivitamin 1 tab PO DAILY 12/08/21 07/13/23 acetaminophen 500 mg capsule 500 mg PO TID PRN pain 01/23/23 07/13/23 amiodarone 200 mg tablet 200 mg PO DAILY 01/23/23 07/13/23 levothyroxine 88 mcg tablet 88 mcg PO DAILY 03/27/23 07/13/23 atorvastatin 40 mg tablet 40 mg PO HS 06/24/23 07/13/23 ferrous sulfate 325 mg (65 mg 325 mg PO QPMWITHMEAL iron 06/24/23 07/13/23 iron) tablet supplement cyanocobalamin (vitamin B-12) 1,000 mcg PO DAILY 07/10/23 07/13/23 1,000 mcg tablet metoprolol tartrate 25 mg tablet 12.5 mg PO BID 07/10/23 07/13/23 ondansetron HCl 4 mg tablet 4 mg PO Q8HP PRN Nausea And 07/10/23 07/13/23 Vomiting polyethylene glycol 3350 17 17 g PO DAILY 07/10/23 07/13/23 gram/dose oral powder sennosides 8.6 mg-docusate sodium 1 tab-cap PO BID 07/10/23 07/13/23 50 mg tablet (Senexon-S) sodium chloride 0.65 % nasal spray 3 spray intranasal TID 07/10/23 07/13/23 aerosol (Deep Sea Nasal) Previous Rx's Medication Instructions Recorded pantoprazole 40 mg tablet,delayed 40 mg PO DAILY acid reflux #30 tabs 10/17/21 release sacubitril 24 mg-valsartan 26 mg 1 tab PO BID #60 tabs 12/15/21 tablet (Entresto) spironolactone 25 mg tablet 25 mg PO DAILY #90 tabs 03/27/23 furosemide 40 mg tablet (Lasix) 40 mg PO DAILY #30 tabs 07/11/23 Allergies Allergy/AdvReac Type Severity Reaction Status Date / Time No Known Allergies Allergy Verified 07/13/23 15:34 [facility] Disclaimer: The information contained in this section may have been updated after the patient was seen, as this information can be updated by other users. Medical History Abnormal findings on diagnostic imaging of heart and coronary circulation Hypocalcemia Hereditary and idiopathic neuropathy, unspecified Chronic pain syndrome Anemia Unspecified rotator cuff tear or rupture of left shoulder, not specified as traumatic SOB (shortness of breath) on exertion BIANCA (acute kidney injury) Hyperlipidemia Hypertension PAF (paroxysmal atrial fibrillation) CAD (coronary atherosclerotic disease) Abnormal electrocardiogram [ECG] [EKG] Adult-onset obesity CRF (chronic renal failure) Contrast dye induced nephropathy LV dysfunction Systolic congestive heart failure Cardiomyopathy Abnormal electrocardiogram [ECG] [EKG] Shortness of Breath Poor historian Surgical History History of coronary artery stent placement History of heart artery stent Abn react-cardiac cath Family History Father Heart attack Diabetes Hypertension Cancer Social History Smoking Status: Former smoker alcohol intake: former current occupational status: retired Travel in the last 8 weeks: None household members: caregiver housing: custodial ROS Obtained: Yes All systems reviewed & no additional complaints except as documented Physical Exam General General appearance: alert and obese Comment: Crying out from abdominal pain Head Head exam: atraumatic and normocephalic Eye Eye exam: Present normal appearance, PERRL and EOMI ENT ENT exam: Present normal exam, normal oropharynx, mucous membranes moist and normal external ear exam Neck Neck exam: Present normal inspection, full ROM and trachea midline; Absent tenderness Chest Chest inspection: Present normal inspection and symmetric chest wall rise; Absent tenderness Respiratory Respiratory exam: Present normal lung sounds bilaterally; Absent respiratory distress, wheezes, stridor or accessory muscle use Cardiovascular Cardiovascular exam: Present regular rate and normal rhythm Abdominal Exam Abdominal exam: Present distention, tenderness (Generalized) and guarding Abdominal tenderness: Present diffuse and moderate Extremities Exam Extremities exam: Present normal inspection, full ROM and normal capillary refill; Absent tenderness or edema Back Exam Back exam: Present normal inspection and full ROM; Absent tenderness Neurological Exam Neurological exam: Present alert and CN II-XII intact; Absent motor sensory deficit Psychiatric Psychiatric exam: Present anxious Skin Skin exam: Present warm and dry Medical Decision Making Medical Records Medical records reviewed: Yes I reviewed the patient's medical records. Trevor Inquiry Pt receiving controlled substance: No Vital Signs: 07/13/23 15:30 07/13/23 15:30 07/13/23 16:00 Temperature 97.4 F L Temperature Source Oral Pulse Rate 67 62 Pulse Rate [Left Radial] 68 Respiratory Rate 13 28 H 21 Blood Pressure 112/44 L 135/56 L Blood Pressure [Right Arm] 112/44 L Blood Pressure Mean Blood Pressure Mean [Right Arm] 66 02 Sat by Pulse Oximetry 95 95 92 L Oxygen Delivery Method Room Air 07/13/23 16:34 07/13/23 16:40 07/13/23 16:45 Temperature Temperature Source Pulse Rate 62 61 59 L Pulse Rate [Left Radial] Respiratory Rate 14 21 22 Blood Pressure 96/53 L 108/53 L 103/45 L Blood Pressure [Right Arm] Blood Pressure Mean Blood Pressure Mean [Right Arm] 02 Sat by Pulse Oximetry 94 L 92 L 91 L Oxygen Delivery Method Room Air Room Air 07/13/23 17:04 07/13/23 17:10 07/13/23 17:15 Temperature Temperature Source Pulse Rate 61 60 65 Pulse Rate [Left Radial] Respiratory Rate 21 22 21 Blood Pressure 111/53 L 105/50 L 112/51 L Blood Pressure [Right Arm] Blood Pressure Mean 59 61 Blood Pressure Mean [Right Arm] 02 Sat by Pulse Oximetry 91 L 92 L 93 L Oxygen Delivery Method Room Air 07/13/23 17:20 07/13/23 17:25 07/13/23 17:30 Temperature Temperature Source Pulse Rate 66 66 60 Pulse Rate [Left Radial] Respiratory Rate 22 22 21 Blood Pressure 107/53 L 113/52 L 118/54 L Blood Pressure [Right Arm] Blood Pressure Mean 71 72 75 Blood Pressure Mean [Right Arm] 02 Sat by Pulse Oximetry 92 L 92 L 91 L Oxygen Delivery Method 07/13/23 17:35 07/13/23 17:40 07/13/23 17:44 Temperature Temperature Source Pulse Rate 63 60 65 Pulse Rate [Left Radial] Respiratory Rate 20 22 22 Blood Pressure 112/49 L 107/52 L 109/54 L Blood Pressure [Right Arm] Blood Pressure Mean 70 73 66 Blood Pressure Mean [Right Arm] 02 Sat by Pulse Oximetry 90 L 91 L 91 L Oxygen Delivery Method 07/13/23 17:50 07/13/23 17:55 07/13/23 18:00 Temperature Temperature Source Pulse Rate 62 62 61 Pulse Rate [Left Radial] Respiratory Rate 18 18 20 Blood Pressure 115/49 L 110/48 L 108/50 L Blood Pressure [Right Arm] Blood Pressure Mean 61 60 58 Blood Pressure Mean [Right Arm] 02 Sat by Pulse Oximetry 92 L 91 L 91 L Oxygen Delivery Method 07/13/23 18:05 07/13/23 18:10 07/13/23 18:15 Temperature Temperature Source Pulse Rate 63 67 65 Pulse Rate [Left Radial] Respiratory Rate 20 22 22 Blood Pressure 104/48 L 106/48 L 108/49 L Blood Pressure [Right Arm] Blood Pressure Mean 66 59 61 Blood Pressure Mean [Right Arm] 02 Sat by Pulse Oximetry 92 L 92 L 91 L Oxygen Delivery Method Lab Data Lab results reviewed: Yes I reviewed the patient's lab results. Lab Results 07/13/23 15:25: WBC 4.5 L, RBC 2.95 L, Hgb 8.9 L, Hct 29.0 L, MCV 98.3, MCH 30.3, MCHC 30.8 L, RDW 19.0 H, Plt Count 303 D, MPV 8.1, Neut % (Auto) 62.2, Lymph % (Auto) 27.4, [place] % (Auto) 7.5, Eos % (Auto) 2.1, Baso % (Auto) 0.9, Neut # (Auto) 2.8, Lymph # (Auto) 1.2, [place] # (Auto) 0.3, Eos # (Auto) 0.1, Baso # (Auto) 0.0, Sodium 139, Potassium 4.8, Chloride 104, Carbon Dioxide 27, Anion Gap 12.8, BUN 40 H, Creatinine 2.70 H, Estimated Creat Clear 28, Estimated GFR 17 L*, Est GFR ( Amer) 21 L, Glucose 122 H, Lactate 1.7, Calcium 8.4, Total Bilirubin 0.6, AST 87 H, ALT 39, Alkaline Phosphatase 157 H, Troponin I < 0.01, Total Protein 6.6, Albumin 3.6, Globulin 3.0, Albumin/Globulin Ratio 1.2, Lipase 91 07/13/23 16:15: Urine Color Yellow, Urine Appearance Clear, Urine pH 6.0, Ur Specific [place] 1.015, Urine Protein Negative, Urine Glucose (UA) Negative, Urine Ketones Negative, Urine Blood Trace-i, Urine Nitrate Negative, Urine Bilirubin Negative, Urine Urobilinogen 0.2, Ur Leukocyte Esterase 1+ A, Urine RBC Occasional, Urine WBC Occasional, Ur Squamous Epith Cells Occasional, Urine Bacteria 2+ 07/13/23 15:25 07/13/23 15:25 Orders (Tests/Meds): ED MEDICATIONS Generic Name Dose Route Start Last Admin Trade Name Freq PRN Reason Stop Dose Admin Piperacillin Sod/Tazobactam 50 mls @ 100 mls/hr 07/13/23 18:21 Sod 3.375 gm/ Sodium Chloride IV 07/13/23 18:50 ONCE ONE Discontinued Medications Generic Name Dose Route Start Last Admin Trade Name Freq PRN Reason Stop Dose Admin Lactated Ringer's 1,000 mls @ 999 mls/hr 07/13/23 16:07 07/13/23 16:13 Lactated Ringer's 1000 Ml Bag IV 07/13/23 17:07 999 mls/hr .Q1H1M ONE Administration Iopamidol 75 ml 07/13/23 16:52 07/13/23 16:53 Iopamidol-370 (76%);100ml Bottle IV 07/13/23 16:53 75 ml ONCE ONE Administration Morphine Sulfate 4 mg 07/13/23 15:34 07/13/23 15:39 Morphine 4mg/Ml Syringe IV 07/13/23 15:35 4 mg ONCE ONE Administration Ondansetron HCl 4 mg 07/13/23 15:34 07/13/23 15:39 Ondansetron 4mg/2ml Vial IV 07/13/23 15:35 4 mg ONCE ONE Administration Sodium Chloride 10 ml 07/13/23 16:52 07/13/23 16:53 Sodium Chloride 0.9% 10ml Syr (Rad Only) IV 07/13/23 16:53 10 ml ONCE ONE Administration Sodium Chloride 50 ml 07/13/23 16:52 07/13/23 16:53 0.9 % Sodium Chloride 50 Ml Vial IV 07/13/23 16:53 50 ml ONCE ONE Administration ORDERS Category Date Time Status CT angio abdomen pelvis Stat Cat Scan 07/13/23 15:33 Completed CTA Chest [CT angio chest PE protocol] Stat Cat Scan 07/13/23 16:18 Completed Complete Blood Count Auto Diff Stat Lab 07/13/23 15:25 Completed Comprehensive Metabolic Panel Stat Lab 07/13/23 15:25 Completed Lactic Acid Stat Lab 07/13/23 15:25 Completed Lipase Stat Lab 07/13/23 15:25 Completed Prothrombin Time INR Stat Lab 07/13/23 15:25 Received Troponin I Q3H Lab 07/13/23 18:45 Ordered Troponin I Q3H Lab 07/13/23 21:45 Ordered Troponin I Stat Lab 07/13/23 15:25 Completed Urinalysis and Microscopic Stat Lab 07/13/23 16:15 Completed Blood Culture Stat Micro 07/13/23 18:21 Ordered Urine Culture Stat Micro 07/13/23 16:15 Received ECG Data Tracing #1: I reviewed this ECG and interpreted as documented below: Sinus rhythm with first-degree AV block with NC interval of 239 ms. Left axis deviation, right bundle branch block. Nonspecific ST/T wave changes without acute STEMI. No significant changes noted from prior EKG. ECG initial impression date: 07/13/23 ECG initial impression time: 15:28 Medical Decision Narrative: In summary, this patient is a 77-year-old female presenting to the Emergency Department for evaluation of abdominal pain. Differential diagnoses considered include but are not limited to bowel obstruction, pancreatitis, colitis, gastroenteritis, bowel ischemia, cholecystitis, ACS. Ruling out the most morbid conditions drove assessment. It should be noted patient's history includes obesity, CAD, cardiomyopathy, hypertension, hyperlipidemia, CKD which may or may not be at goal therapy. This complicates all aspects of care by increasing patient's risk for morbidity. I reviewed patient's past medical records and noted previous evaluation here a month ago and transferred to for subarachnoid hemorrhage after fall as per HPI. On exam, the patient is alert but crying out in pain from abdominal pain. She has generalized abdominal tenderness with guarding. Workup included CBC, CMP, lipase, lactic acid, urinalysis, troponin, EKG, CTA chest, abdomen, and pelvis. She was given IV morphine and Zofran as well as an IV bolus of fluids. I independently interpreted CT scan prior to the radiologist read and noted no obvious acute aortic pathology. Please see their read for final interpretation. Radiology called me and I had an interactive discussion with radiology who noted concern for air around the left lobe of the liver, concerning for portal venous gas/pneumobilia. they noted no obvious pneumatosis. They also noted biliary dilatation. Labs were obtained that demonstrated mild leukopenia and anemia. Lactic acid is normal. Patient has a very mild BIANCA with creatinine up to 2.7 from a baseline of around 1.7-2. Urine is concerning for possible UTI. Of note, patient did become hypotensive upon arrival. Systolics dropped to the 70s with MAP in the 40s. She was given 2 L of IV fluids via pressure bag with good improvement in her blood pressure to systolics of 1 teens. She remained normotensive after IV fluid resuscitation. IV Zosyn was initiated given concerns for intra-abdominal infection with her generalized tenderness and pneumobilia. Ultimately given findings, I feel the patient would benefit from transfer to higher level of care. I initiated conversations with [facility] and had an interactive discussion with Dr. Pantoja in transfer center and Dr. Lopez with surgery who accepted the patient there for transfer for further evaluation and management. Transport was arranged, and the patient was transferred in stable condition. Critical Care Critical Care Time Critical Care Time: Yes Attestation: On 07/13/23, the high probability of a clinically significant, sudden or life threatening deterioration of the following system(s) required my full and direct attention, intervention and personal management. The time I documented below is in addition to time spent performing reported procedures but includes the following listed in this critical care notation. Total Time Total Critical Care Time: 45
[2023-07-13 16:18] LABS: Microscopic, Urine URINE MICROSCOPIC (MICROSCOPIC)
--- NOTE | 2023-07-13 16:18 | CT_ITS ---
PROCEDURE INFORMATION: Exam: CTA Chest With Contrast Exam date and time: 07/13/2023 4:53 PM Age: 77 years old Clinical indication: Other: Chest/abd pain, hypoxia TECHNIQUE: Imaging protocol: Computed tomographic angiography of the chest with contrast. Exam focused on the arteries. 3D rendering (Not supervised by radiologist): MIP and/or 3D reconstructed images were created by the technologist. Radiation optimization: All CT scans at this facility use at least one of these dose optimization techniques: automated exposure control; mA and/or kV adjustment per patient size (includes targeted exams where dose is matched to clinical indication); or iterative reconstruction. Contrast material: ISOVUE 370; Contrast volume: 75 ml; Contrast route: INTRAVENOUS (IV); COMPARISON: CR XR CHEST 2V 01/15/2023 9:09 AM FINDINGS: Pulmonary arteries: Normal. No pulmonary emboli. Aorta: Unremarkable. No aortic aneurysm. No aortic dissection. Mild atherosclerotic changes of the aorta. Lungs: Mild bilateral fibro atelectatic changes. Calcified posterior right upper lobe and lateral right lower lobe lung nodules. A 4 mm nodule in the right middle lobe on axial image 63 of series 5 and 6 mm subpleural nodule in the posterior right lower lobe on axial image [address] abdomen of 11/01/2021. No follow-up advised. Lung benjamin otherwise clear. Pleural spaces: Unremarkable. No pneumothorax. No pleural effusion. Heart: Unremarkable. No cardiomegaly. No pericardial effusion. Coronary arteries: Mild coronary artery calcifications are noted. Lymph nodes: Unremarkable. No enlarged lymph nodes. Bones/joints: Unremarkable. No acute fracture. Soft tissues: Unremarkable. IMPRESSION: 1. No evidence of aneurysm or dissection. No other acute findings. 2. Additional nonemergent findings as above.
[2023-07-13 16:22] LABS: Appearance,Urine CLEAR (Clear); Bilirubin,Urine Negative (Negative); Blood, Urine TRACE-I (Negative); Color,Urine YELLOW (Yellow); Glucose,Urine (UA) Negative (Negative); Ketones,Urine Negative (Negative); Leukocyte Esterase,Urine 1+ (Negative); Nitrate,Urine Negative (Negative); Protein,Urine Negative (Negative); Specific Gravity, Urine 1.015 (1.005-1.030); Urobilinogen,Urine 0.2 EU/dl (0.2)
[2023-07-13 16:38] LABS: Bacteria,Urine 2+ /lpf; RBC,Urine Occasional #/hpf (0-3); Squamous Epithelial Cell,Urine Occasional #/hpf (0-5); WBC,Urine Occasional #/hpf (0-3)
[2023-07-13] MEDS: 0.9 % SODIUM CHLORIDE 50 ML VIAL IV (16:53)
[2023-07-13] MEDS: SODIUM CHLORIDE 0.9% 10ML SYR (RAD ONLY) 10 ML IV (16:53)
[2023-07-13] MEDS: IOPAMIDOL-370 (76%);100ML BOTTLE 75 ML IV (16:53)
--- NOTE | 2023-07-13 16:54 | HMH.ITSTN ---
GFR results were overrode for the use of contrast media by the Physician, , on a risk vs. benefit situation with this patient.
--- NOTE | 2023-07-13 17:50 | PC.NURSE ---
[facility] updated on pt POC.
--- NOTE | 2023-07-13 18:09 | PC.NURSE ---
on phone with [facility]
--- NOTE | 2023-07-13 18:10 | PC.NURSE ---
IMAGES POWERSHARED TO [facility] AND DISC REQUEST
--- NOTE | 2023-07-13 18:13 | PC.NURSE ---
Called [facility] to speak with them about pt being transferred for ABD Pain and Pneumobilia.. [facility] checking to see if they can connect now.
--- NOTE | 2023-07-13 18:14 | PC.NURSE ---
was able to get a hold of the Doc and they are speaking with Dr Cleaning at this time
--- NOTE | 2023-07-13 18:18 | PC.NURSE ---
on phone with transfer center
--- NOTE | 2023-07-13 18:21 | PC.NURSE ---
PT ACCEPTED AT BY DR ROCK.
--- NOTE | 2023-07-13 18:24 | PC.NURSE ---
call made to dennis reyez [phone] to update pt on POC
[2023-07-13 18:30] LABS: INR 0.95 (0.9-1.1); Prothrombin Time 10.3 seconds (10.1-12.5)
--- NOTE | 2023-07-13 18:31 | PC.NURSE ---
lab at bedside for blood cultures
[2023-07-13] MEDS: PIPERACILLIN/TAZO 3.375 GM in 0.9 % SODIUM CHLORIDE 50 ML IV (18:48)
[2023-07-13 19:22] LABS: Troponin I < 0.01 ng/ml (0.00-0.034)
--- NOTE | 2023-07-13 20:52 | PC.NURSE ---
[facility] here for transport
--- NOTE | 2023-07-13 21:02 | PC.NURSE ---
4mg of zofran given, ordered placed could not scan because order was not showing on [facility]
--- NOTE | 2023-07-14 15:27 | ECG_ITS ---
APPROVED REPORT Exam: Resting ECG HR:66 bpm ECG Measurements Heart Rate 66 AXES AR 239 P 54 QRSd 178 QRS -61 QT 480 T 53 QTc 494 Conclusion SINUS RHYTHM WITH FIRST DEGREE AV BLOCK LEFT AXIS DEVIATION [QRS AXIS < -30] RIGHT BUNDLE BRANCH BLOCK [120+ ms QRS DURATION, UPRIGHT V1, 40+ ms S IN I/aVL/V4/V5/V6] POSSIBLE ANTEROSEPTAL MYOCARDIAL INFARCTION , OF INDETERMINATE AGE [30 ms Q WAVE IN V1-V4] ABNORMAL ECG Electronically signed by : BREONNA MONAE, 07/14/2023 04:41:01
--- NOTE | 2023-07-19 01:54 | PC.NURSE ---
blood cx neg for growth on prelim. pending final read
== END 2023-07-13 20:54 | disposition short-term general hospital (02) ==
PROVIDERS: Emergency Provider Emergency Medicine; PCP Nurse Practitioner Family
DX: R10.84 Generalized abdominal pain (principal); N39.0 Urinary tract infection, site not specified; B96.1 Klebsiella pneumoniae [K. pneumoniae] as the cause of diseases classified elsewhere; K83.8 Other specified diseases of biliary tract; I48.0 Paroxysmal atrial fibrillation; Z87.891 Personal history of nicotine dependence; Z95.5 Presence of coronary angioplasty implant and graft; I45.19 Other right bundle-branch block; I44.0 Atrioventricular block, first degree; N18.9 Chronic kidney disease, unspecified; E78.5 Hyperlipidemia, unspecified; I11.9 Hypertensive heart disease without heart failure; I25.10 Atherosclerotic heart disease of native coronary artery without angina pectoris
CPT/HCPCS: 36415; 71275; 74174; 80053; 81001; 83605; 83690; 84484; 85025; 85610; 87040; 87086; 87088; 87186; 93005; 96361; 96365; 96375; 96376; 99285; J2405; J2543; J7120; Q9967

== ENCOUNTER 2023-08-29 08:39 | Day surgery (SDC) | payer MEDICARE, MEDICAID, SELFPAY ==
[2023-08-29] VITALS (11 sets, daily range): BP systolic 81–126; BP diastolic 38–59; PULSE 46–60; RESP 15–19; TEMP 36.6; O2SAT 88–100; BMI 31.2
--- NOTE | 2023-08-29 07:12 | IR_ITS ---
APPROVED REPORT Patient Location: Outpatient [facility] Operator: CANDI Temple RT (R) PROCEDURES Left heart catheterization Left ventriculogram Selective coronary angiogram INDICATION High risk abnormal Myoview Informed consent was obtained prior to the procedure. COMPLICATIONS NONE Estimated Blood Loss: LESS THAN 10 ML TECHNIQUE One percent lidocaine used to anesthetize the right anterior aspect of the wrist. The right radial artery was accessed via the Seldinger technique. A 6 Albanian sheath was placed in the right radial artery. 2.5 mg of Verapamil, 800 mcg of nitroglycerin, 1mg Lidocaine and 5000 U Heparin were given through the arterial sheath. The papa catheter was also used to perform left heart catheterization, left ventriculogram and selective coronary angiogram. At the end of the procedure the sheath was removed good hemostasis was achieved using Traclet band, patient was transferred to the postop holding area in stable condition. ANGIOGRAPHIC RESULTS The left main artery Normal The left anterior descending artery Normal The circumflex artery Normal The right coronary artery Dominant normal The FRANCIS ventriculogram reveals Hyperdynamic 70% The left ventricular end-diastolic pressure 15 mmHg IMPRESSION Normal coronary arteries Hyperdynamic ventricle consistent with hypertensive heart disease Borderline LVEDP PLAN 1. Medical management Electronically signed by : Kamran Wilkerson MD 08/29/2023 10:53:09
[2023-08-29 09:16] LABS: Basophils % 0.6 % (0.1-2.0); Eosinophils # 0.1 K/mm3 (0.0-0.4); Eosinophils % 2.6 % (0.1-12.0); Hematocrit 33.9 % (37.0-47.0); Hemoglobin 10.4 g/dL (12.2-16.2); Lymphocytes # 1.1 K/mm3 (0.7-4.5); Lymphocytes % 21.4 % (10-50); Mean Corpuscular HGB Conc 30.6 g/dL (31.8-35.4); Mean Corpuscular Hemoglobin 29.7 pg (27.0-31.2); Mean Corpuscular Volume 97.1 fl (81-99); Mean Platelet Volume 7.5 fl (7.4-10.4); Monocytes # 0.3 K/mm3 (0.1-1.0); Monocytes % 5.2 % (1.7-9.3); Neutrophils # 3.7 K/mm3 (1.8-7.8); Neutrophils % 70.3 % (37.0-80.0); Platelet Count 314 K/mm3 (142-424); Red Blood Count 3.49 M/mm3 (4.20-5.40); Red Cell Distribution Width 16.5 % (11.5-17.5); White Blood Count 5.3 K/mm3 (4.8-10.8)
[2023-08-29 09:27] LABS: Anion Gap 13.8 mEq/L (5-15); Blood Urea Nitrogen 29 mg/dl (7-17); Calcium 9.1 mg/dl (8.4-10.2); Carbon Dioxide 26 mmol/L (22.0-30.0); Chloride 103 mmol/L (98-107); Creatinine Clearance Estimated 31 mL/min (50-200); Estimated Glomerular Filt Rate 21 ml/min (>60); GFR (African American) 25 ML/MIN (>60); Glucose 96 mg/dl (74-100); Potassium 4.8 mmoL/L (3.5-5.1); Sodium 138 mmol/L (136-145)
[2023-08-29] MEDS: VERAPAMIL 2.5MG/ML 2ML VIAL 2.5 MG IV (10:06)
[2023-08-29] MEDS: LIDOCAINE 1% 10ML MDV 20 ML IJ (10:06)
[2023-08-29] MEDS: diphenhydrAMINE 50MG/ML VIAL 50 MG IV (10:06)
[2023-08-29] MEDS: HEPARIN 1,000 UNITS/500ML NS (CATH LAB) 3000 UNIT IV (10:06)
[2023-08-29] MEDS: NITROGLYCERIN 800MCG/8ML SYR (CATH LAB) 800 MCG IA (10:06)
[2023-08-29] MEDS: HEPARIN 1,000 UNITS/ML 10ML VIAL (CATH LAB) 10000 UNIT IV (10:07)
[2023-08-29] MEDS: 0.9 % SODIUM CHLORIDE 500 ML 25 ML IV (10:07)
[2023-08-29] MEDS: MIDAZOLAM HCL 1MG/1ML 5ML VIAL 1 MG IV (10:35)
[2023-08-29] MEDS: FENTANYL 100MCG/2ML VIAL 50 MCG IV (10:36)
--- NOTE | 2023-08-29 12:30 | SUR.PHASEII ---
Spoke to [facility]ully at Nursing facility and gave report on patient.
--- NOTE | 2023-08-29 13:00 | SUR.PHASEII ---
Called [facility] for transportation back to facility.
[2023-08-29] MEDS: IOPAMIDOL-370 (76%);100ML BOTTLE 40 ML IV (17:31)
== END 2023-08-29 13:35 | disposition home or self-care (01) ==
PROVIDERS: PCP Internal Medicine; Visit Provider Internal Medicine
DX: R93.1 Abnormal findings on diagnostic imaging of heart and coronary circulation (principal); R07.89 Other chest pain; R06.02 Shortness of breath; I48.0 Paroxysmal atrial fibrillation; Z79.899 Other long term (current) drug therapy; I25.118 Atherosclerotic heart disease of native coronary artery with other forms of angina pectoris; I25.2 Old myocardial infarction; N18.9 Chronic kidney disease, unspecified; I12.9 Hypertensive chronic kidney disease with stage 1 through stage 4 chronic kidney disease, or unspecified chronic kidney disease
CPT/HCPCS: 80048; 85025; 93458; 99152; C1725; C1769; J1644; J2250; J3010; Q9967

== ENCOUNTER 2023-12-07 13:42 | Outpatient (POV) | payer MEDICARE, MEDICAID, SELFPAY | END 2023-12-07 23:59 | disposition home or self-care (01) | LOC: SC 13:42 | PROVIDERS: Visit Provider Student in an Organized Health Care Education/Training Program | DX: Z00.00 Encounter for general adult medical examination without abnormal findings (principal) ==

== ENCOUNTER 2024-03-12 13:21 | Outpatient (CLI) | payer MEDICARE, MEDICAID, SELFPAY ==
[2024-03-12 14:29] LABS: Alanine Aminotransferase 21 U/L (12-78); Alkaline Phosphatase 130 U/L (38-126); Anion Gap 15.4 mEq/L (5-15); Aspartate Amino Transferase 29 U/L (14-36); Bilirubin,Direct 0.1 mg/dl (0.0-0.4); Bilirubin,Indirect 0.1 mg/dL (0.0-0.9); Bilirubin,Total 0.2 mg/dl (0.2-1.3); Bilirubin,Unconjugated 0.1 mg/dL (0.0-1.1); Blood Urea Nitrogen 26 mg/dl (7-17); Calcium 9.4 mg/dl (8.4-10.2); Carbon Dioxide 27 mmol/L (22.0-30.0); Chloride 107 mmol/L (98-107); Chol/HDL Ratio 3.6 (1-3.5); Cholesterol 138 mg/dl (140-200); Estimated Glomerular Filt Rate 31 ml/min (>60); GFR (African American) 38 ML/MIN (>60); Glucose 97 mg/dl (74-100); HDL Cholesterol 38 mg/dl (40-60); Potassium 5.4 mmoL/L (3.5-5.1); Sodium 144 mmol/L (136-145); Total Protein,Serum 6.6 g/dl (6.3-8.2); Triglycerides 124 mg/dl (30-150); VLDL Cholesterol 25 mg/dL (0-40)
[2024-03-12 14:35] LABS: Basophils % 0.5 % (0.1-2.0); Eosinophils % 4.2 % (0.1-12.0); Hematocrit 34.3 % (37.0-47.0); Hemoglobin 10.6 g/dL (12.2-16.2); Lymphocytes % 22.1 % (10-50); Mean Corpuscular HGB Conc 30.9 g/dL (31.8-35.4); Mean Corpuscular Hemoglobin 29.8 pg (27.0-31.2); Mean Corpuscular Volume 96.3 fl (81-99); Mean Platelet Volume 9.9 fl (7.4-10.4); Neutrophils % 64.8 % (37.0-80.0); Platelet Count 268 K/mm3 (142-424); Red Blood Count 3.56 M/mm3 (4.20-5.40); Red Cell Distribution Width 13.6 % (11.5-17.5); White Blood Count 5.5 K/mm3 (4.8-10.8)
[2024-03-12 14:36] LABS: Eosinophils # 0.2 K/mm3 (0.0-0.4); Lymphocytes # 1.2 K/mm3 (0.7-4.5); Monocytes # 0.4 K/mm3 (0.1-1.0); Neutrophils # 3.6 K/mm3 (1.8-7.8)
[2024-03-12 14:40] LABS: Direct LDL Cholesterol 64.95 mg/dL (100-129)
[2024-03-12 14:44] LABS: Free T4 (Free Thyroxine) 1.24 ng/dl (0.78-2.19)
== END 2024-03-12 23:59 | disposition home or self-care (01) ==
LOC: LAB 13:22
PROVIDERS: PCP Internal Medicine; Visit Provider Nurse Practitioner
DX: R94.31 Abnormal electrocardiogram [ECG] [EKG] (principal); I25.10 Atherosclerotic heart disease of native coronary artery without angina pectoris; I48.0 Paroxysmal atrial fibrillation; I10 Essential (primary) hypertension; E78.2 Mixed hyperlipidemia; R06.02 Shortness of breath
CPT/HCPCS: 36415; 80048; 80061; 80076; 83735; 84439; 84443; 85025

== ENCOUNTER 2024-05-21 07:34 | Outpatient (CLI) | payer MEDICARE, MEDICAID, SELFPAY ==
[2024-05-21 08:07] LABS: Albumin Level 3.9 g/dl (3.5-5.0); Chloride 104 mmol/L (98-107); Potassium 5.2 mmoL/L (3.5-5.1); Sodium 142 mmol/L (136-145)
[2024-05-21 08:10] LABS: Alanine Aminotransferase 20 U/L (12-78); Albumin/Globulin Ratio 1.2 (1.1-1.8); Alkaline Phosphatase 125 U/L (38-126); Anion Gap 10.2 mEq/L (5-15); Aspartate Amino Transferase 26 U/L (14-36); Bilirubin,Total 0.4 mg/dl (0.2-1.3); Blood Urea Nitrogen 29 mg/dl (7-17); Carbon Dioxide 33 mmol/L (22.0-30.0); Estimated Glomerular Filt Rate 23 ml/min (>60); GFR (African American) 27 ML/MIN (>60); Globulin 3.2 g/dL (1.3-3.2); Total Protein,Serum 7.1 g/dl (6.3-8.2)
[2024-05-21 08:11] LABS: Calcium 9.1 mg/dl (8.4-10.2); Glucose 103 mg/dl (74-100)
[2024-05-21 09:28] LABS: Free T4 (Free Thyroxine) 1.16 ng/dl (0.78-2.19)
[2024-05-21 12:07] LABS: Hemoglobin A1C 5.6 % (4.0-6.0)
[2024-05-22 08:13] LABS: Triiodothyronine (T3) Total 86 ng/dL (71-180)
== END 2024-05-21 23:59 | disposition home or self-care (01) ==
LOC: LAB 07:37
PROVIDERS: PCP Nurse Practitioner Family; Visit Provider Nurse Practitioner Family
DX: E07.9 Disorder of thyroid, unspecified (principal); E11.9 Type 2 diabetes mellitus without complications
CPT/HCPCS: 36415; 80053; 83036; 84439; 84443; 84480